=== PATIENT | female | born 1970 | race Caucasian/White ===

== ENCOUNTER 2023-09-10 15:08 | Outpatient (AMB) | payer OTHER, SELFPAY ==
--- NOTE | 2023-09-10 15:04 | MHC.OFFVIS ---
Intake Vital Signs 09/10/23 15:05 Height 5 ft 4 in Intake Visit Reasons: PANTRY STEWARD/STEWARDESS/ re-ref for VV, hx of venaseal Intake Note: PANTRY STEWARD/STEWARDESS/ Re-referral for Left LE VV s/p Right GSV Venaseal 08/10/2019. Pt states that she also has bilateral hand numbness. The past year she did have a few surgeries including hysterectomy Accompanied by: Self / Same As Patient Allergies fermaldihide Allergy (Mild, Uncoded 09/10/23 15:12) Hives HPI PANTRY STEWARD/STEWARDESS/ re-ref for VV, hx of venaseal HPI Details Very pleasant 53-year-old female presents for follow-up regarding venous disease. We had actually seen her back in May of 2019. At that time she had undergone bilateral great saphenous vein ablation with Cyanoacralate ablation. She reports that she was doing extremely well since that time. Over the last few years she reports that the swelling has progressively increased left more so than right. She has developed a large cluster varicosities going from the medial aspect of that left thigh into the posterior calf. In addition in the interim she did have a hysterectomy. She reports she has been doing fairly well otherwise but the leg swelling is starting to become an issue for her. She is not a able to do her daily exercises including walking and yoga. She now presents for follow-up evaluation. Of note she has been using compression that has provided minimal relief. [facility] Medical History (Updated 09/11/23 @ 07:39 by Иван Young MD) Hernia (~1972) Surgical History (Updated 09/10/23 @ 15:14 by SAROJ Laureano) S/P endometrial ablation H/O: hysterectomy (~03/2023) Social History (Updated 09/10/23 @ 15:15 by SAROJ Laureano) Patient Tobacco Use Status: Never used Tobacco Review of Systems Const Reports as per HPI ENT Reports no additional complaints Card Denies chest pain, Denies chest pain at rest and Denies chest pain with activity Resp Denies chest congestion and Denies cough GI Reports no additional complaints Musc Details: pain over varicosities, aching of lower extremities, swelling, cramping, heaviness and tiredness, itching Denies abnormal gait Skin/Breast Reports pruritus and Denies wounds Neuro Reports no additional complaints and Denies abnormal gait Psych Denies no additional complaints Physical Exam Const General: cooperative, healthy appearing and comfortable Orientation/consciousness: oriented to person, oriented to place and oriented to time Neck Carotids: no bruits Chest Chest palpation & inspection: normal inspection of the chest and normal palpation of entire chest wall Resp Effort & Inspection: normal respiratory effort and able to speak in complete sentences Cardio Rate: regular rate Heart sounds: S1 normal heart sound present and S2 normal heart sound present Peripheral pulses: Peripheral pulses 2+ throughout GI Inspection: Yes normal to inspection Skin Other: +2 edema, large rope-like varicosities greater than 4 mm Left medial thigh and calf CEAP Classification C4 - skin color changes Ep - Etiology Primary As - superficial veins P - reflux General skin exam: dry skin Neuro General: oriented to person, oriented to place and oriented to time Extrem Right lower extremity: full ROM, normal capillary refill and edema Left lower extremity: full ROM, normal capillary refill and edema Psych Mental Status: mental status grossly normal Assessment & Plan Assessment & Plan (1) Varicose veins of left lower extremity with inflammation: Comment: 05/2019 - left great saphenous vein Cyanoacralate ablation Code(s): I83.12 - Varicose veins of left lower extremity with inflammation Plan: In short, the patient has evidence of venous insufficiency. I have discussed the pathophysiology with the patient. In addition I have provided informational material regarding venous disease to the patient. We have discussed conservative measures including compression, elevation, and exercise. I have also provided a handout regarding appropriate use of compression stockings and where to purchase good compression stockings as well. I have taken the liberty of ordering venous insufficiency testing with the patient. They will follow up with me after testing. The patient had an opportunity to ask questions regarding the treatment plan. All questions were answered. Imaging studies, laboratory studies and physical exam results were discussed and reviewed in detail. No major barriers to understanding were identified. The patient expressed understanding and agreement with the above treatment plan. The patient is aware they should contact our office by phone for worsening of the current condition or the appearance of new symptoms. Thank you for allowing me to participate in the vascular care of this patient. If you have any questions or concerns regarding the treatment for the above condition please do not hesitate to contact me. The office telephone contact is [phone]. This note is constructed using voice recognition software. While every effort has been made to ensure accuracy, production statistical clerk errors may have been included. Thank you for allowing me to participate in the care of your patient. Yours sincerely, Иван Young MD, FACS, R.P.V.I. (2) Varicose veins of right lower extremity with inflammation: Comment: 05/2019 - right great saphenous vein Cyanoacralate ablation Code(s): I83.11 - Varicose veins of right lower extremity with inflammation Orders: Orders US venous duplex LE BI 1 Week I83.12 - Varicose veins of left lower extremity with inflammation Coding Level of Care Code New Pt Level 4 (58031) Diagnoses Varicose veins of left lower extremity with inflammation I83.12 Varicose veins of right lower extremity with inflammation I83.11
== END 2023-09-10 15:54 | disposition home or self-care (01) ==
PROVIDERS: PCP Internal Medicine; Visit Provider Surgery Vascular Surgery
DX: I83.12 Varicose veins of left lower extremity with inflammation (principal); I83.11 Varicose veins of right lower extremity with inflammation
CPT/HCPCS: 99203

== ENCOUNTER → 2023-09-10 15:08 | Outpatient (BNVA) | payer OTHER, SELFPAY | PROVIDERS: PCP Internal Medicine; Visit Provider Surgery Vascular Surgery ==

== ENCOUNTER 2023-09-19 12:45 | Outpatient (REF) | payer OTHER, SELFPAY ==
--- NOTE | ~2023-09-19 | US_ITS ---
EXAMINATION: RIGHT and LEFT LOWER EXTREMITY VENOUS ULTRASOUND (Reflux Exam) CLINICAL INDICATION: Varicose veins left lower extremity with inflammation status post venous ablation on the right of the greater saphenous vein 2019 left venoseal greater saphenous vein 2019 COMPARISON: Ultrasound venous insufficiency from 06/02/2019, ultrasound lower extremity Doppler right from 08/03/2019 TECHNIQUE: Color flow triplex imaging and compression Doppler was performed to evaluate both the deep and the superficial systems bilaterally. To evaluate the superficial system, the examination was performed in the upright position. Color-flow Doppler ultrasound and compression ultrasound were utilized. In addition, maneuvers were utilized to demonstrate reflux. FINDINGS: 1. DEEP VENOUS ULTRASOUND OF THE RIGHT LOWER EXTREMITY: Respiratory variation, normal compression and augmented flow are noted in the right common femoral vein, right femoral vein, as well as the right popliteal vein and there is no evidence of deep venous thrombosis at these locations. There is no evidence of reflux in the deep system in either the common femoral vein or the popliteal vein. . There is no evidence of a Johnson's cyst. 2. SUPERFICIAL ULTRASOUND WITH DOPPLER OF RIGHT LOWER EXTREMITY: The right great saphenous vein at the saphenofemoral junction measures 6.4 mm, at the mid thigh 3.1 mm, zbmwl-sca-yvxc 1.9 mm, ioryg-mqi-layf 2.7 mm, at mid calf 2.5 mm and at the ankle measures 2.1 mm. There is reflux demonstrated in the right great saphenous vein. The right small saphenous vein measures 2.3 mm and shows no reflux. Multiple perforators measuring up to 4.1 mm with reflux. Multiple varicose veins measuring up to 4.1 mm with reflux. 3. DEEP VENOUS ULTRASOUND OF THE LEFT LOWER EXTREMITY: Respiratory variation, normal compression and augmented flow are noted in the left common femoral vein, femoral vein as well as the left popliteal vein and there is no evidence of deep venous thrombosis at these locations. There is no evidence of reflux in the deep system in either the common femoral vein or the popliteal vein. . Duplicated left femoral vein seen in its midportion. There is no evidence of a Johnson's cyst. 4. SUPERFICIAL ULTRASOUND WITH DOPPLER OF LEFT LOWER EXTREMITY: Left great saphenous vein at the saphenofemoral junction measures 7.2 mm, at the mid thigh 1.9 mm, rpjmy-auw-nqfo 2.7 mm, mzvad-lwh-cbzm 0.9 mm, at mid calf 1.5 mm and at the ankle measures 2.2 mm. There is reflux demonstrated in the left great saphenous vein. Accessory vein noted medially measuring up to 2.8 mm without reflux and laterally measuring up to 8.0 cm with reflux. The left small saphenous vein measures 2.1 mm and shows no reflux. Multiple perforators noted measuring up to 2.8 mm without reflux. No varicose veins. US/US venous duplex LE BI IMPRESSION: 1. No evidence of reflux or thrombus in the common femoral veins or popliteal veins bilaterally. 2. RIGHT: No reflux of the deep system. Reflux of the superficial system. Multiple perforators with reflux. Multiple varicose veins with reflux. 3. LEFT: No reflux of the deep system. Reflux of the superficial system. Multiple perforators without reflux. No varicose veins.
== END 2023-09-19 12:46 | disposition home or self-care (01) ==
LOC: HO.US 12:45
PROVIDERS: PCP Internal Medicine; Visit Provider Surgery Vascular Surgery
DX: I83.12 Varicose veins of left lower extremity with inflammation (principal)
CPT/HCPCS: 93970

== ENCOUNTER 2023-10-15 13:39 | Outpatient (AMB) | payer OTHER, SELFPAY ==
--- NOTE | 2023-10-15 13:49 | MHC.OFFVIS ---
Intake Vital Signs 10/15/23 13:49 Height 5 ft 4 in Intake Visit Reasons: FU US Intake Note: follow up repeat US 09/19/23 w/ Hx of Right GSV Venaseal 08/10/2019 and Left GSV venaseal 05/2019. Pt states Left LE has been bothersome recently Accompanied by: Self / Same As Patient Allergies fermaldihide Allergy (Mild, Uncoded 10/15/23 13:53) Hives HPI FU US HPI Details Very pleasant 53-year-old female presents for follow-up regarding venous insufficiency. She had bilateral lower extremity venous ablation is with us back in 2019. She reports she had been doing well for period of time in the left leg started to cause her some issues. She had some swelling and discomfort she now presents for follow-up with repeat venous insufficiency testing. Of note she has been using compression with minimal PFSH Medical History Hernia (~1972) Surgical History S/P endometrial ablation H/O: hysterectomy (~03/2023) (Updated 09/10/23 @ 15:15 by SAROJ Laureano) Patient Tobacco Use Status: Never used Tobacco Review of Systems Const Reports as per HPI ENT Reports no additional complaints Card Denies chest pain, Denies chest pain at rest and Denies chest pain with activity Resp Denies chest congestion and Denies cough GI Reports no additional complaints Musc Details: pain over varicosities, aching of lower extremities, swelling, cramping, heaviness and tiredness, itching Denies abnormal gait Skin/Breast Reports pruritus and Denies wounds Neuro Reports no additional complaints and Denies abnormal gait Psych Denies no additional complaints Physical Exam Const General: cooperative, healthy appearing and comfortable Orientation/consciousness: oriented to person, oriented to place and oriented to time Neck Carotids: no bruits Chest Chest palpation & inspection: normal inspection of the chest and normal palpation of entire chest wall Resp Effort & Inspection: normal respiratory effort and able to speak in complete sentences Cardio Rate: regular rate Heart sounds: S1 normal heart sound present and S2 normal heart sound present Peripheral pulses: Peripheral pulses 2+ throughout GI Inspection: Yes normal to inspection Skin Other: +2 edema, large rope-like varicosities greater than 4 mm CEAP Classification C4 - skin color changes Ep - Etiology Primary As - superficial veins P - reflux General skin exam: dry skin Neuro General: oriented to person, oriented to place and oriented to time Extrem Right lower extremity: full ROM, normal capillary refill and edema Left lower extremity: full ROM, normal capillary refill and edema Psych Mental Status: mental status grossly normal Results Reviewed Results Reviewed: Brief summary of venous insufficiency testing is as follows: right great saphenous vein: Positive at calf right small saphenous vein: negative right accessory vein: none present left great saphenous vein: negative left small saphenous vein: negative left accessory vein: Present and positive Please note there is no evidence of any venous aneurysms or significant tortuosity Assessment & Plan Assessment & Plan (1) Varicose veins of left lower extremity with inflammation: Comment: 05/2019 - left great saphenous vein Cyanoacralate ablation Code(s): I83.12 - Varicose veins of left lower extremity with inflammation Plan: This patient has varicose veins with inflammation. They continue to be a source of discomfort for the patient. The patient has tried conservative treatment with compression, leg elevation and exercise program for over 3 months time. They have been compliant with all treatment. This has provided minimal relief for the patient. I do not anticipate this course of treatment will alter the underlying etiology. The patient has been scheduled for lower extremity venous treatment inclusive of --- left accessory saphenous vein radiofrequency ablation. Risks, benefits, and complications of this procedure has been discussed in detail with the patient including but not limited to bleeding, infection, and the development of a DVT. The patient has demonstrated a clear understanding and has consented. We will schedule the patient as soon as possible. Thank you for allowing us to participate in this patient's care. If there are any questions or concerns please do not hesitate to contact us. (2) Varicose veins of right lower extremity with inflammation: Comment: 05/2019 - right great saphenous vein Cyanoacralate ablation Code(s): I83.11 - Varicose veins of right lower extremity with inflammation Coding Level of Care Code Est Pt Level 4 (89993) Diagnoses Varicose veins of left lower extremity with inflammation I83.12 Varicose veins of right lower extremity with inflammation I83.11
== END 2023-10-15 14:22 | disposition home or self-care (01) ==
PROVIDERS: PCP Internal Medicine; Visit Provider Surgery Vascular Surgery
DX: I83.12 Varicose veins of left lower extremity with inflammation (principal); I83.11 Varicose veins of right lower extremity with inflammation
CPT/HCPCS: 99214

== ENCOUNTER → 2023-10-15 13:39 | Outpatient (BNVA) | payer OTHER, SELFPAY | PROVIDERS: PCP Internal Medicine; Visit Provider Surgery Vascular Surgery ==

== ENCOUNTER 2023-11-29 08:27 | Outpatient (AMB) | payer OTHER, SELFPAY ==
--- NOTE | 2023-11-29 09:38 | MHC.OFFVIS ---
Intake Vital Signs 11/29/23 09:38 Height 5 ft 4 in Intake Visit Reasons: Left ASV RFA Allergies fermaldihide Allergy (Mild, Uncoded 11/29/23 09:39) Hives [facility] Medical History Hernia (~1972) Surgical History S/P endometrial ablation H/O: hysterectomy (~03/2023) Social History Patient Tobacco Use Status: Never used Tobacco Office Procedures Vascular Office Procedure Details Details: Diagnosis: Varicose veins with inflammation of left leg Procedure: Endovenous radiofrequency ablation of the left accessory saphenous vein(s) of the lower extremity. Anesthesia: Local infiltration 5 cc, Tumescent 200 cc. Estimated Blood Loss: Minimal Specimen: Varicose veins The patient was transferred to the procedure suite and the insufficient saphenous vein was mapped by ultrasound and diagrammed on the overlying skin. The depth and diameter of the vein(s) to be treated was documented. The varicose tributary veins and suitable access sites were identified and mapped as well. The patient was then positioned supine on the procedure table. The affected limb was prepped and draped in the usual sterile fashion. The RF catheter was placed on the sterile field, flushed and wiped down, prepared, and connected by a sterile cable. The patient was placed in reverse- Trendelenburg position and local anesthesia was instilled in the skin overlying the access site. A skin incision was made overlying the identified and mapped great saphenous vein entry site. The vein was accessed using ultrasound guidance and the Seldinger technique, a guide wire was introduced through the needle, which was then exchanged over the guide wire for a 7F sheath, which was secured in place. The guide wire was removed and the sheath was flushed. The RF catheter was placed into the vein through the sheath and preferentially, imaging was used to place the catheter tip just inferior to the superficial epigastric vein to preserve normal physiological flow in that vein. Additionally, it was confirmed by ultrasound guidance that the catheter tip was also placed a minimum of 1.5cm distal to the saphenofemoral junction. After the RF catheter position was verified by ultrasound, tumescent anesthesia was infiltrated, under ultrasound guidance, precisely into the perivenous compartment along the entire length of vein from the entry site to the saphenofemoral junction until a halo of fluid was noted around the vein. The patient was then placed in Trendelenburg position to further exsanguinate the superficial venous system. After RF catheter position was again confirmed with ultrasound imaging, and under direct external compression along the length of the heating element, RF energy was applied. The vein was segmentally ablated by heating a 7 cm segment and then indexing the catheter forward by 6.5 cm until the treatment length is completed. Device temperature was maintained at 120 plus or minus 5 degrees C with an initial power level of 40W dropping to below 20W for each treatment. Total vein length treated 6 cm Total cycles of RF 4. Repeat ultrasound of the saphenous vein was performed, confirming successful treatment. The catheter and sheath were withdrawn and hemostasis established with direct pressure. After assuring hemostasis, the skin incision over the saphenous vein was closed with a bandage and a compression wrap, and/ or graduated compression stocking was applied from the level of the foot to the most proximal level of the thigh. 46503 - Endovenous RF, 1st Vein All charges added?: Procedure code (CPT) selection complete Assessment & Plan Assessment & Plan (1) Varicose veins of left lower extremity with inflammation: Comment: 05/2019 - left great saphenous vein Cyanoacralate ablation Code(s): I83.12 - Varicose veins of left lower extremity with inflammation Plan: See op note Coding Level of Care Code Procedure Only Diagnoses Varicose veins of left lower extremity with inflammation I83.12 CPT Codes Details - Vascular 1: 01509 - Endovenous RF, 1st Vein ([id number])
== END 2023-11-29 09:09 | disposition home or self-care (01) ==
PROVIDERS: PCP Internal Medicine; Visit Provider Surgery Vascular Surgery
DX: I83.12 Varicose veins of left lower extremity with inflammation (principal)
CPT/HCPCS: 36475

== ENCOUNTER → 2023-11-29 08:27 | Outpatient (BNVA) | payer OTHER, SELFPAY | PROVIDERS: PCP Internal Medicine; Visit Provider Surgery Vascular Surgery | DX: I83.12 Varicose veins of left lower extremity with inflammation (principal) | CPT/HCPCS: 36475 ==

== ENCOUNTER 2023-12-02 15:42 | Outpatient (REF) | payer OTHER, SELFPAY ==
--- NOTE | ~2023-12-02 | US_ITS ---
EXAMINATION: US VENOUS ULTRASOUND WITH DOPPLER LOWER EXTREMITY, LEFT CLINICAL INFORMATION: Pain in left leg Status post left venaseal ablation of the ASV (lateral) Date of procedure 11/29/2023 COMPARISON: None available. TECHNIQUE: Ultrasound of the deep veins is performed from the hip to the calf with compression sonography and color and pulse Doppler assessment. Spectral analysis with color-flow imaging is performed. FINDINGS: There is normal venous compression and respiratory variation. The visualized common femoral vein, superficial femoral vein, profunda femoral vein, popliteal vein, and the mid posterior tibial vein and peroneal vein shows no evidence of deep venous thrombosis. The contralateral common femoral vein demonstrates normal respiratory variation. The ASV (lateral) is occluded 1.9 cm from the junction. There is no extension into the SFJ/SPJ. US/US venous duplex LE LT IMPRESSION: No DVT demonstrated in the left lower extremity. Excellent appearance status post venaseal ablation of the left ASV.
== END 2023-12-02 15:43 | disposition home or self-care (01) ==
LOC: HO.US 15:42
PROVIDERS: PCP Internal Medicine; Visit Provider Surgery Vascular Surgery
DX: M79.605 Pain in left leg (principal)
CPT/HCPCS: 93971

== ENCOUNTER 2023-12-12 13:38 | Outpatient (AMB) | payer OTHER, SELFPAY ==
[2023-12-12 13:56] VITALS: BP 140/92; PULSE 87; O2SAT 99
--- NOTE | 2023-12-12 13:56 | A.OFFVIS_ITS ---
Intake Vital Signs 12/12/23 13:56 Height 5 ft 4 in BP 140/92 H Blood Pressure Location Lt brachial Position Sitting Pulse 87 Pulse Source Pulse Oximeter Pulse Oximetry (%) 99 Oxygen Delivery Method Room Air Intake Visit Reasons: 2 week follow up left ASV RFA Intake Note: Pt presents to the office today for a 2 week follow up left ASV RFA. Pt states she is feeling well and has been using compression stockings. Pt denies any concerns at this time. Allergies fermaldihide Allergy (Mild, Uncoded 12/12/23 13:58) Hives HPI 2 week follow up left ASV RFA HPI Details Very pleasant 53-year-old female presents for follow-up status post left accessory saphenous vein radiofrequency ablation. She reports that she had no postprocedure discomfort. Overall she does note that the left leg swelling has decreased. She does have some superficial varicosities that have been a source of pain and discomfort for her. She now presents to us for vascular evaluation. [facility] Medical History Hernia (~1972) Surgical History S/P endometrial ablation H/O: hysterectomy (~03/2023) Social History Patient Tobacco Use Status: Never used Tobacco Review of Systems Const Reports as per HPI ENT Reports no additional complaints Card Denies chest pain, Denies chest pain at rest and Denies chest pain with activity Resp Denies chest congestion and Denies cough GI Reports no additional complaints Musc Details: pain over varicosities, aching of lower extremities, swelling, cramping, heaviness and tiredness, itching Denies abnormal gait Skin/Breast Reports pruritus and Denies wounds Neuro Reports no additional complaints and Denies abnormal gait Psych Denies no additional complaints Physical Exam Vital Signs: Last Vital Signs Pulse 87 12/12/23 13:56 BP 140/92 H 12/12/23 13:56 Pulse Ox 99 12/12/23 13:56 Oxygen Delivery Method Room Air 12/12/23 13:56 Const General: cooperative, healthy appearing and comfortable Orientation/consciousness: oriented to person, oriented to place and oriented to time Neck Carotids: no bruits Chest Chest palpation & inspection: normal inspection of the chest and normal palpation of entire chest wall Resp Effort & Inspection: normal respiratory effort and able to speak in complete sentences Cardio Rate: regular rate Heart sounds: S1 normal heart sound present and S2 normal heart sound present Peripheral pulses: Peripheral pulses 2+ throughout GI Inspection: Yes normal to inspection Skin Other: +2 edema, large rope-like varicosities greater than 4 mm left thigh and medial calf CEAP Classification C4 - skin color changes Ep - Etiology Primary As - superficial veins P - reflux General skin exam: dry skin Neuro General: oriented to person, oriented to place and oriented to time Extrem Right lower extremity: full ROM, normal capillary refill and edema Left lower extremity: full ROM, normal capillary refill and edema Psych Mental Status: mental status grossly normal Assessment & Plan Assessment & Plan (1) Varicose veins of left lower extremity with inflammation: Comment: 05/2019 - left great saphenous vein Cyanoacralate ablation 11/29/2023 -left accessory saphenous vein radiofrequency ablation Code(s): I83.12 - Varicose veins of left lower extremity with inflammation Plan: This patient has varicose veins with inflammation. They continue to be a source of discomfort for the patient. The patient has tried conservative treatment with compression, leg elevation and exercise program for over 3 months time. They have been compliant with all treatment. This has provided minimal relief for the patient. I do not anticipate this course of treatment will alter the underlying etiology. The patient has been scheduled for lower extremity venous treatment inclusive of --- left leg microphlebectomy. Risks, benefits, and complications of this procedure has been discussed in detail with the patient including but not limited to bleeding, infection, and the development of a DVT. The patient has demonstrated a clear understanding and has consented. We will schedule the patient as soon as possible. Thank you for allowing us to participate in this patient's care. If there are any questions or concerns please do not hesitate to contact us. Coding Level of Care Code Est Pt Level 3 (09096) Diagnoses Varicose veins of left lower extremity with inflammation I83.12
== END 2023-12-12 14:36 | disposition home or self-care (01) ==
PROVIDERS: PCP Internal Medicine; Visit Provider Surgery Vascular Surgery
DX: I83.12 Varicose veins of left lower extremity with inflammation (principal)
CPT/HCPCS: 99213

== ENCOUNTER → 2023-12-12 13:38 | Outpatient (BNVA) | payer OTHER, SELFPAY | PROVIDERS: PCP Internal Medicine; Visit Provider Surgery Vascular Surgery ==

== ENCOUNTER 2024-01-17 10:24 | Outpatient (AMB) | payer OTHER, SELFPAY ==
--- NOTE | 2024-01-17 11:38 | MHC.OFFVIS ---
Intake Intake Visit Reasons: Left Leg Micro Allergies fermaldihide Allergy (Mild, Uncoded 12/12/23 13:58) Hives PFSH Medical History Hernia (~1972) Surgical History S/P endometrial ablation H/O: hysterectomy (~03/2023) Social History Patient Tobacco Use Status: Never used Tobacco Office Procedures Vascular Office Procedure Details Details: Diagnosis: [] Leg varicose veins with inflammation Procedure: Left leg Microphlebectomy Anesthesia: Local Infiltration 50 cc, Tumescent: 0 cc. Varicose veins were marked in the standing position on the left leg and the patient was then placed in the prone position. The left lower extremity was prepared and draped to allow knee flexion in the sterile field. The patient had large superficial varicose veins with significant symptoms of pain. It was therefore determined to perform microphlebectomies of the clusters of varicose veins. The patient had bulging varicose veins which were previously marked in the standing position. A small stab incision was made longitudinally directly overlying the varicose vein in the calf and the varicose vein was grasped with a hemostat aided by a vein hook. It was then dissected as far proximally and distally as possible and avulsed. A total of 12 stab incisions were made and the procedure of stab phlebectomies was repeated 12 times. Hemostasis was checked and stab incision sites were closed with steri-strips and sterile dressing was given with gauze and krilex wrap followed by an phuc bandage. There were no complications and blood loss was minimal. Post-Op instructions were given and a follow-up appointment was recommended. [id number] - Phleb Veins, Extrem - up to 20 All charges added?: Procedure code (CPT) selection complete Assessment & Plan Assessment & Plan (1) Varicose veins of left lower extremity with inflammation: Comment: 05/2019 - left great saphenous vein Cyanoacralate ablation 11/29/2023 -left accessory saphenous vein radiofrequency ablation 01/17/2024 - left leg microphlebectomy Code(s): I83.12 - Varicose veins of left lower extremity with inflammation Plan: See op note Coding Level of Care Code Procedure Only Diagnoses Varicose veins of left lower extremity with inflammation I83.12 CPT Codes Details - Vascular 5: 60970 - Phleb Veins, Extrem - up to 20 ([id number])
== END 2024-01-17 12:52 | disposition home or self-care (01) ==
PROVIDERS: PCP Internal Medicine; Visit Provider Surgery Vascular Surgery
DX: I83.12 Varicose veins of left lower extremity with inflammation (principal)
CPT/HCPCS: 37765

== ENCOUNTER → 2024-01-17 10:24 | Outpatient (BNVA) | payer OTHER, SELFPAY | PROVIDERS: PCP Internal Medicine; Visit Provider Surgery Vascular Surgery | DX: I83.12 Varicose veins of left lower extremity with inflammation (principal) | CPT/HCPCS: 37765 ==

== ENCOUNTER 2024-02-19 13:13 | Outpatient (REF) | payer OTHER, SELFPAY ==
[2024-02-20 07:29] LABS: Follicle Stimulating Hormone 146.5 mIU/mL; Lutenizing Hormone 63.8 mIU/mL
== END 2024-02-19 13:14 | disposition home or self-care (01) ==
LOC: HO.LAB 13:13
PROVIDERS: PCP Internal Medicine; Visit Provider Internal Medicine
DX: N91.2 Amenorrhea, unspecified (principal)
CPT/HCPCS: 36415; 83001; 83002

== ENCOUNTER 2024-03-03 15:01 | Outpatient (AMB) | payer OTHER, SELFPAY ==
--- NOTE | 2024-03-03 15:05 | MHC.OFFVIS ---
Intake Vital Signs 03/03/24 15:05 Height 5 ft 4 in Intake Visit Reasons: Follow Up Micro Intake Note: follow up Left LE Micro 01/17/24. Pt states legs feel good, she wears her compression socks daily when she is on her feet. Accompanied by: Self / Same As Patient Allergies fermaldihide Allergy (Mild, Uncoded 03/03/24 15:13) Hives HPI Follow Up Micro HPI Details Very pleasant 54-year-old female presents for follow-up status post microphlebectomy. She reports that her legs are doing significantly better swelling and discomfort have decreased. She now presents for routine follow-up. Of note she has been using compression and reports a fairly good result with that. [facility] Medical History Hernia (~1972) Surgical History S/P endometrial ablation H/O: hysterectomy (~03/2023) Social History Patient Tobacco Use Status: Never used Tobacco Review of Systems Const All systems reviewed & are unremarkable except as noted in HPI and below Reports no additional complaints ENT Reports Normal hearing present Card Denies chest pain, Denies chest pain at rest, Denies chest pain with activity and Denies pedal edema Resp Denies cough GI Denies abdominal pain Musc Denies abnormal gait, Denies muscle cramps and Denies radiating pain into limb Skin/Breast Denies skin ulcer and Denies wounds Neuro Reports Normal hearing present and Denies abnormal gait Psych Reports no additional complaints Physical Exam Const General: cooperative, healthy appearing and comfortable Orientation/consciousness: oriented to person, oriented to place and oriented to time HEENT Head: Yes normal to inspection Neck Neck: Yes normal visual inspection Carotids: no bruits Chest Chest palpation & inspection: normal inspection of the chest Resp Effort & Inspection: normal respiratory effort and able to speak in complete sentences Auscultation: clear to auscultation bilaterally, no crackles, no rales, no rhonchi and no wheezes Cardio Rate: regular rate Rhythm: regular rhythm Heart sounds: S1 normal heart sound present and S2 normal heart sound present Bruits: no carotid bruits Peripheral pulses: Peripheral pulses 2+ throughout GI Inspection: Yes normal to inspection Skin Wounds: no wounds Hair: normal Neuro General: oriented to person, oriented to place and oriented to time Cranial nerves: Yes CN's II-XII intact bilaterally and Yes Normal hearing present Cognition (Neuro): normal cognition Motor exam (neuro): 5/5 motor strength present throughout Extrem Other: venous exam: No significant superficial varicosities or spider telangiectasias, minimal edema General: No clubbing, No cyanosis and No edema Psych Appearance: grossly normal Mental Status: mental status grossly normal Speech and movement: Normal speech and movement present Assessment & Plan Assessment & Plan (1) Varicose veins of left lower extremity with inflammation: Comment: 05/2019 - left great saphenous vein Cyanoacralate ablation 11/29/2023 -left accessory saphenous vein radiofrequency ablation 01/17/2024 - left leg microphlebectomy Code(s): I83.12 - Varicose veins of left lower extremity with inflammation Plan: The patient has done extremely well with all venous treatments. Patient's may often experience postprocedure phlebitic episodes and I have discussed with the patient use of warm compresses and NSAIDS if tolerated for pain discomfort. In addition, I have discussed continued conservative measures including use of compression, leg elevation, and exercise. The patient was also given an information sheet regarding appropriate use of compression stockings and future purchases. Thank you for allowing us to care for your patient with venous disease. (2) Varicose veins of right lower extremity with inflammation: Comment: 05/2019 - right great saphenous vein Cyanoacralate ablation Code(s): I83.11 - Varicose veins of right lower extremity with inflammation Plan: See above Coding Level of Care Code Est Pt Level 3 (12056) Diagnoses Varicose veins of left lower extremity with inflammation I83.12 Varicose veins of right lower extremity with inflammation I83.11
== END 2024-03-03 15:41 | disposition home or self-care (01) ==
PROVIDERS: PCP Internal Medicine; Visit Provider Surgery Vascular Surgery
DX: I83.12 Varicose veins of left lower extremity with inflammation (principal); I83.11 Varicose veins of right lower extremity with inflammation
CPT/HCPCS: 99213

== ENCOUNTER → 2024-03-03 15:01 | Outpatient (BNVA) | payer OTHER, SELFPAY | PROVIDERS: PCP Internal Medicine; Visit Provider Surgery Vascular Surgery ==

== ENCOUNTER 2024-04-21 14:30 | Outpatient (REF) | payer OTHER, SELFPAY ==
[2024-04-21 19:05] LABS: Vitamin B12 1369 pg/mL (200-900)
== END 2024-04-21 14:31 | disposition home or self-care (01) ==
LOC: HO.MANLDS 14:30
PROVIDERS: Visit Provider Internal Medicine
DX: G56.03 Carpal tunnel syndrome, bilateral upper limbs (principal)
CPT/HCPCS: 36415; 82607

== ENCOUNTER 2025-03-08 13:41 | Outpatient (REF) | payer OTHER, SELFPAY ==
--- NOTE | ~2025-03-08 | XR_ITS ---
EXAMINATION: Lumbar spine 6 views. CLINICAL INDICATION: Low back pain. COMPARISON: None. FINDINGS: There is normal lumbar lordosis. There is mild dextroscoliosis upper lumbar spine. 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 The vertebral heights and alignment is normal. There is mild loss of L5-S1 disc height. Rest of the disc heights are normal. On oblique views there is no pars defect or listhesis. No lytic or sclerotic process seen. The SI joints are symmetrical and normal. The paravertebral soft tissues are normal. XR/XR lumbar spine 4V min IMPRESSION: Mild loss of L5-S1 disc height. Electronically signed by: Nayan Johansen MD 03/09/2025 07:57 AM EDT
--- OUTSIDE RECORDS SUMMARY | 2025-03-08 15:51 | XMS_ITS | Encounter Summary ---
Author Organization [facility] Address [address] [place] [id number] Phone Care Team Providers Care Kindergarten Aide Name Role Phone Mio Pascual DO Primary Care Provider [phone] Mio Pascual DO Unavailable Encounter Details Date Type Department Care Team (Latest Contact Info) Description 12/23/2019 Transcribe Orders Virtual Department [address] [place] [address] Miriam Gauthier PA-C [address] [place] [address] Atypical chest pain (Primary Dx) Social History Tobacco Use Types Packs/Day Years Used Date Smoking Tobacco: Never Assessed Sex and Gender Information Value Date Recorded Sex Assigned at Not on file Gender Identity Not on file Sexual Orientation Not on file documented as of this encounter Plan of Treatment Not on file documented as of this encounter Visit Diagnoses Diagnosis Atypical chest pain- Primary Other chest pain documented in this encounter Care Teams Kindergarten Aide Relationship Specialty Start Date End Date Mio Pascual DO PCP - General Internal Medicine 12/16/19 Mio Pascual DO [address] [place] [address] [place] [address] Insurance Assigned Provider 01/29/20 08/31/23 documented as of this encounter Additional Source Comments The information contained in this document represents components of the legal health record. It is not the complete legal health record.[facility]
--- OUTSIDE RECORDS SUMMARY | 2025-03-08 15:51 | XMS_ITS | Continuity of Care Document ---
Author Organization [facility], [facility] Address [address] [place] [address] Assessment Encounter Date Assessment Date Assessment LastModified by Organization Details LastModified Time 03/08/2025 03/08/2025 [address] [place] [address] (REFUELER) MDM MODERATE MUST MEET 2 OUT OF 3 ELEMENTS: PROBLEMS, DATA OR RISK ELEMENT 1: PROBLEMS ADDRESSED 1 OR MORE CHRONIC ILLNESS WITH EXACERBATION OR 2 OR MORE STABLE CHRONIC ILLNESSES OR 1 UNDIAGNOSED NEW PROBLEM OR 1 ACUTE ILLNESS W/SYMPTOMS OR 1 ACUTE COMPLICATED INJURY ELEMENT 2: DATA MUST MEET 1 OF 3 CATEGORIES CATEGORY 1: REVIEW OF PRIOR EXTERNAL NOTES, REVIEW OF RESULTS, ORDERING OF EACH TEST, ASSESSMENT REQUIRING INDEPENDENT HISTORIAN OR CATEGORY 2: INDEPENDENT INTERPRETATION OF TESTS BY ANOTHER PHYSICIAN OR SPECIALIST OR CATEGORY 3: DISCUSSION OF MGT OR TEST INTERPRETATION W/EXTERNAL PHYSICIAN OR SPECIALIST ELEMENT 3: RISK RISK OF COMPLICATIONS AND/OR MORBIDITY OR MORTALITY OF PATIENT MANAGEMENT PROVIDER MUST THOROUGHLY DOCUMENT EACH ELEMENT THAT IS COVERED Not available 03/08/2025 11:15:06 Plan of Treatment Reminders Order Date Submit Date Provider Last Modified By Organization Details Last Modified Time Details Appointments FOLLOW UP 15 2024 11:00A M DR BRIDGES Not available Not available Not available Lab CMP, serum or plasma 2024 025 [facility], [address] [place] [address], [place], [address], 03/08/2025 11:24:52 CBC 2024 025 [facility], [address] [place] [address], [id number], 03/08/2025 11:24:52 lipid panel, blood 2024 025 [facility], [address] [place] [address], [id number], 03/08/2025 11:24:52 Referral None recorded. Procedures None recorded. Surgeries None recorded. Imaging XR, lumbosacr al spine, 2 or 3 view 2024 025 [email or web address] [facility] [address] [place] [address], [place], [address], 03/08/2025 11:57:00 Medication Orders None recorded. Patient TargetsNo targets recorded. Patient Instructions Encounter Date Encounter Id Patient Instructions Last Modified By Organization Details Last Modified Time 03/08/2025 [id number] back care and preventing injuries: care instructions Not available 03/08/2025 11:14:50 getting back to normal after low back pain: care instructions Not available 03/08/2025 11:14:50 learning about relief for back pain Not available 03/08/2025 11:14:49 Reason for Referral None Reported. Problems Name Problem SNOMED Code Status Onset Date Resolution Date Notes Provider Name and Address Organization Details Recorded Time Maya bhatti 09162272 Active 2021 Not Available [facility] 3 12:51:59 Menorrha arslan [id number] Completed 202205/15/2023 Removal Reason: surgery Mio Bridges DO [address] [place] [address], [phone], [facility] 3 14:41:25 Uterine leiomyom a 44768554 Completed 202205/15/2023 Removal Reason: surgery Mio Bridges DO [address] [place], [address], [facility] 3 14:49:46 Mass of uterus [id number] 29278 Completed 202205/15/2023 Mio Bridges DO [address] [place], [address], [facility] 3 14:41:30 Volvulus of colon 0592649 Active 2022 Not Available [facility] 3 12:51:59 Uterine leiomyom a 45558031 Active 2022 Not Available [facility] 3 12:51:59 Irregula r blood group antibody detected 600000271 Active 2022 Not Available [facility] 3 12:51:58 Paresthe emani of upper limb 01669904 Active 2023 Mio Bridges, DO [address] [place] [address], [address], [facility] 4 09:26:06 Carpal tunnel syndrome 48998954 Active 2023 Mio Bridges, DO [address] [place] [address], [address], [facility] 4 09:26:52 Amenorrh ea 68911101 Active 2023 Mio Bridges, DO [address] [place] [address], [address], [facility] 4 11:50:47 Menopaus e Active 2023 Mio Bridges, DO [address] [place] [address], [address], [facility] 4 12:14:25 Menopaus e present 169242810 Active 2023 Mio Bridges, DO [address] [place] [address], [address], [facility] 4 22:40:55 Low back pain 223521130 Active 2024 Mio Bridges DO [address] [place] [address], [address], [facility] 5 11:12:57 Varicose veins of lower extremit y 17243325 Active 2017 Not Available [facility] 3 12:51:59 Problem Notes None recorded. Procedures Surgical History Date Name Laterality Status Provider Name and Address Organization Details Recorded Time 4 Colonoscopy completed Carolee Rosado [facility] 09/21/2024 11:33:46 Imaging Results None recorded. Procedure Notes None recorded. Medical Equipment None Reported. Allergies Allergen ID Allergen Name Allergen Category Reaction Reaction Severity Criticality Documentation Date Start Date Code Code System Note Provider Name and Address Organization Details Recorded Time [facility] Not available Not available Not available 11/05/2022 4530 RxNorm hair will break off/s adriana yeboah, swell ing [facility] 2 13:51:51 Medications Name Sig Start Date Stop Date Status Note LastModified by Organization Details LastModified Time methylpre dnisolone dose pack 4 mg tbpk 12/23 completed Not Available Not Available Not Available aranelle 0.5/1/0.5 -35 mg-mcg tabs 12/23 completed Not Available Not Available Not Available gavilyte- g 236 gm solr 12/23 completed Not Available Not Available Not Available boostrix 5-2.5-18. 5 lf-mcg/0. 5 susp 12/23 completed Not Available Not Available Not Available senthil 0.5/1/0.5 -35 mg-mcg tabs 12/23 completed Not Available Not Available Not Available neomycin/ polymyxin /dexameth asone 3.5-67159 -0.1 susp 12/23 completed Not Available Not Available Not Available methylpre dnisolone 4 mg tabs 12/23 completed Not Available Not Available Not Available losartan 50 mg tablet 1 po qd active Not Available Not Available Not Available prednison e 10 mg tablet 1 tab X 3 days 03/17 completed Not Available Not Available Not Available ibuprofen 800 mg tablet TAKE 1 TABLET BY MOUTH EVERY 8 HOURS NEEDED FOR PAIN FOR UP TO 10 DAYS. 05/15 completed Not Available Not Available Not Available valacyclo vir 1 gram tablet TAKE 1 TABLET BY MOUTH THREE TIMES A DAY FOR 7 DAYS 02/18 completed Not Available Not Available Not Available methylpre dnisolone 4 mg tablet TAKE 6 TABLETS ON DAY 1 DIRECTED ON PACKAGE AND DECREASE BY 1 TAB EACH DAY FOR A TOTAL OF 6 DAYS 02/18 completed Not Available Not Available Not Available estradiol 0.05 mg/24 hr semiweekl y transderm al patch APPLY 1 PATCH BY TRANSDER MAL ROUTE TWICE A WEEK active Not Available Not Available No t Available Vitamin C 1,000 mg tablet Take by oral route. 05/15 completed Not Available Not Available Not Available neomycin- polymyxin -dexameth 3.5 mg/mL-10, 000 unit/mL-0 .1% eye drops 12/23 completed Not Available Not Available Not Available lisinopri l 10 mg tablet TAKE 1 TABLET BY MOUTH EVERY DAY 12/24 completed nose bleeds Not Available Not Available Not Available triamtere ne 37.5 mg-hydroc hlorothia zide 25 mg tablet TAKE 1 TABLET BY MOUTH EVERY DAY FOR 30 DAYS 04/21 completed near incontin ent the hctz bothers her Not Available Not Available Not Available codeine 10 mg-guaife nesin 100 mg/5 mL oral liquid 02/28 completed Not Available Not Available Not Available norethind alfreda acetate 5 mg tablet TAKE TWO TABLETS PER DAY ORALLY UNTIL BLEEDING STOPS AND THEN ONE ORALLY PER DAY 11/05 completed Not Available Not Available Not Available ibuprofen 600 mg tablet TAKE 1 TABLET BY MOUTH EVERY 6 HOURS 05/15 completed Not Available Not Available Not Available methylpre dnisolone 4 mg tablets in a dose pack 24 mg PO on day 1, then decr. by 4 mg/day x5 days per dose pack instruct ions 12/23 completed Not Available Not Available Not Available labetalol 100 mg tablet TAKE 1 TABLET BY MOUTH EVERY 8 HOURS 11/05 completed Not Available Not Available Not Available oxycodone 5 mg tablet TAKE 1 TABLET BY MOUTH EVERY 6 HOURS NEEDED FOR PAIN 05/15 completed Not Available Not Available Not Available Vitamin D3 25 mcg (1,000 unit) capsule Take by oral route. 05/15 completed Not Available Not Available Not Available Multivita min 50 Plus tablet Take 1 tablet every day by oral route. active Not Available Not Available No t Available Aradavide (28) 0.5 mg/1 mg/0.5 mg-35 mcg tablet 1 tablet qd 05/15 completed Not Available Not Available Not Available Boostrix Tdap 2.5 Lf unit-8 mcg-5 Lf/0.5 mL intramusc ular syringe 12/23 completed Not Available Not Available Not Available magnesium active Not Available Not Rosa ilable Not Available Vitamin D3 OTC 04/21 completed Not Available Not Available Not Available Vitamin B12 OTC tablets active Not Available Not Available No t Available GaviLyte- G 236 gram-22.7 4 gram-6.74 gram-5.86 gram oral solution 06/17 completed Not Available Not Available Not Available ClearLax 17 gram/dose oral powder MIX 17 GRAMS WITH WATER AND DRINK ONCE DAILY NEEDED FOR CONSTIPA TION 05/15 completed Not Available Not Available Not Available Vitamin B12 daily 05/15 completed OTC Not Available Not Available Not Available Yuvafem 10 mcg vaginal tablet INSERT 1 TABLET VAGINALL Y DAILY AT BEDTIME FOR 14 DAYS. DISCARD REMAINDI NG TABLETS. 02/18 completed Not Available Not Available Not Available Vitals None Recorded Social History Question Answer Notes LastModified by Organizat ion Details LastModified Time Tobacco Smoking Status Never Smoker Not Available [facility] 09/27/2020 03:36:23 What Was The Date Of Your Most Recent Tobacco Screening? 08/07/2024 [email or web address] Information not available 08/07/2024 How Much Tobacco Do You Smoke? No [id number] Information not available 09/27/2020 Do You Or Have You Ever Used Any Other Forms Of Tobacco Or Nicotine? No [email or web address] Information not available 12/24/2023 Sex: Female Functional Status None recorded. Mental Status None recorded. Family History Relationship Description Onset Age of this Age Resolved Age Notes LastModified by Organization Details LastModified Time Father Myocardial infarction [email or web address] Not available 11/26 11:59:58 Paternal Grandfather Myocardial infarction [email or web address] Not available 11/26 11:59:58 Paternal Uncle Myocardial infarction [email or web address] Not available 11/26 11:59:58 Paternal Grandmother Myocardial infarction [email or web address] Not available 11/26 11:59:58 Maternal Uncle Myocardial infarction [email or web address] Not available 11/26 11:59:58 Mother Polyp of colon [email or web address] Not available 2024 08:13:27 Sister Polyp of colon [email or web address] Not available 2024 08:13:27 Medical History No medical history recorded. Gynecological History Statement/Question Response Date of LMP 02/19/2018 Obstetrics History GPAL:G 0 P 0 0 0 0 Immunizations Vaccine Type Date Status Note Provider Nam e and Address Organization Details Recorded Time COVID-19, mRNA, LNP-S, PF, 30 mcg/0.3 mL dose 03/15/2021 completed Gloria Gencarelle eli [facility] 12/24/2023 08:55:23 COVID-19, mRNA, LNP-S, PF, 30 mcg/0.3 mL dose 04/05/2021 completed Gloria Gencarelle eli [facility] 12/24/2023 08:55:23 COVID-19, mRNA, LNP-S, PF, 30 mcg/0.3 mL dose 11/22/2021 completed Gloria Gencarelle eli [facility] 12/24/2023 08:55:23 Tdap 04/02/2019 completed Not Available [facility] 11/08/2023 12:51:59 Past Encounters Encounter ID Performer Location Encounter Start Date Encounter Closed Date Diagnosis/Indication Diagnosis SNOMED-CT Code Diagnosis ICD10 Code Diagnosis Note [id number] Mio Bridges [facility] [address] [place] [address] 03/08/2025 08:13:11 03/08/2025 11:57:00 Essential hypertension 80089068 I10 losartan is doing greathome readings are doing good Menopause 065322512 N95. 1 doing great with hormonal therapy Depression screening 171 259517 Z13.31 negative Low back pain 907109063 M54.50 seems to be worsening without a injury Health Concerns Section Related Observation LastModified by Organization Detai ls LastModified Time None Recorded Concern Status LastModified by Organization Details LastModified Time None Recorded Payers Encounter Date Sequence Insurance Name Policy Number Policy Scherer Covered Member ID Scherer Member ID Guarantor Name 03/08/2025 1 [facility] [employer] - DIRECT CONNECTORCARE TYPE I (O) [id number] Corin Swann [id number] Corin Swann Notes Date Note Type Note Provider Name and Address Organization Details Recorded Time 03/08/20 25 text/htm l Care Management - HypertensionReported bypatient.Self Care:not under emotional stress Severity:symptoms are improving; does not interfere with daily activities Associated Symptoms:no dizziness; no lightheadedness; no chest pain; no shortness of breath; no palpitations; no edema; no calf muscle cramps; no blurred vision; no confusion; no headaches; no fatigueMenopauseReported bypatient.Associated Symptoms:no abdominal pain; no pelvic pain; no abnormal bleeding; no vaginal discharge; no dysuria; no dispareunia; no changes in bowel function; no fever; no vaginal dryness; no irritability; no depression; no anxiety; no skin changes; no loss of libido; no changes in urination patient is evaluated via tele/video assessment per patient consent during current pandemic doing well sleeps well jopint pain is much betterdoing good with hormone replacementsleep is goodhas had occ back pain that has been getting worseseems to be getting worse on right sleeps at night gets worsestanding prolonged times Mio Bridges, DO [address], [place], [address], [facility] 03/08/2025 11:21:24 OBGyn Episode No OBEpisode recorded.
--- OUTSIDE RECORDS SUMMARY | 2025-03-08 15:51 | XMS_ITS | Data Portability ---
Author Organization [facility] Home Service Address [address] [place] [address] Assessment Encounter Date Assessment Date Assessment LastModified by Organization Details LastModified Time 02/19/2024 02/19/2024 [id number] [place] [id number] (CONCESSIONIST) MDM MODERATE MUST MEET 2 OUT OF [...] EACH ELEMENT THAT IS COVERED Not available 02/19/2024 11:41:19 04/21/2024 04/21/2024 [address] [place] [address] (CONCESSIONIST) MDM MODERATE MUST MEET 2 OUT OF [...] EACH ELEMENT THAT IS COVERED Not available 04/21/2024 14:13:25 08/07/2024 08/07/2024 [id number] [place] [address] (CONCESSIONIST) MDM MODERATE MUST MEET 2 OUT OF [...] EACH ELEMENT THAT IS COVERED Not available 08/07/2024 12:12:54 03/08/2025 03/08/2025 [address] [place] [address] (CONCESSIONIST) MDM MODERATE MUST MEET 2 OUT OF [...] Lab CMP, serum or plasma 2024 025 [facility], [address] [place] [address], [place], [address], 03/08/2025 11:24:52 CBC 2024 025 [facility], [address] [place] [address], [place], [address], 03/08/2025 11:24:52 lipid panel, blood 2024 025 [facility], [address] [place] [address], [address], 03/08/2025 11:24:52 vitamin B12, serum 2023 024 [facility], [address] [place] [address], [address], 04/22/2024 11:17:07 lh + FSH, serum 2023 024 [facility], [address] [place] [address], [address], 02/20/2024 11:15:04 noninvasi ve colorecta l cancer DNA + occult blood screening , QL, stool 2023 024 [facility], [address] [place] [address], [place], [address], 03/17/2024 22:09:10 CMP, serum or plasma 2023 024 [facility] (Lab), [address] [place] [address], [address], 12/26/2023 12:21:35 CBC w/ auto diff 2023 024 [facility] (Lab), [address] [place] [address], [address], 12/26/2023 12:21:34 lipid panel, blood 2023 024 [facility] (Lab), [address] [place] [address], [address], 12/26/2023 12:21:35 vitamin D, 25-hydrox y, total, serum 2023 024 [facility] (Lab), [address], [place], [address], 12/26/2023 12:21:[address] referral 2023 024 idris Soto MD, [address] [place], [address], 12/25/2023 08:32:33 Procedures None recorded. Surgeries None recorded. Imaging XR, lumbosacr al spine, 2 or 3 view 2024 025 [email or web address] [facility] (Imaging), [address] [place], [address], 03/08/2025 11:57:00 Medication Orders estradiol 0.05 mg/24 hr semiweekl y transderm al patch 2023 024 [facility]acy #[id number], [address] [place], [address], 08/07/2024 12:16:22 losartan 50 mg tablet 2023 024 [facility]armacy #[id number], [address] [place], [address], 02/19/2024 11:41:09 triamtere ne 37.5 mg-hydroc hlorothia zide 25 mg tablet 2023 024 [email or web address] [facility]/Pharmacy #[id number], [address] [place], [address], 04/21/2024 13:55:36 Patient TargetsNo targets recorded. Patient Instructions Encounter Date Encounter Id Patient Instructions Last Modified By Organization Details Last Modified Time 12/24/2023 [id number] varicose veins: care instructions Not available 12/24/2023 09:22:04 carpal tunnel syndrome: care instructions Not available 12/24/2023 09:29:13 carpal tunnel syndrome: exercises Not available 12/24/2023 09:29:13 02/19/2024 [id number] secondary amenorrhea: care instructions Not available 02/19/2024 11:50:59 04/21/2024 [id number] carpal tunnel syndrome: care instructions Not available 04/21/2024 14:14:55 carpal tunnel syndrome: exercises Not available 04/21/2024 14:14:55 secondary amenorrhea: care instructions Not available 04/21/2024 14:14:54 08/07/2024 [id number] secondary amenorrhea: care instructions Not available 08/07/2024 12:16:20 03/08/2025 [id number] back care and preventing injuries: care instructions Not available 03/08/2025 11:14:50 getting back to normal after low back pain: care instructions Not available 03/08/2025 11:14:50 learning about relief for back pain Not available 03/08/2025 11:14:49 Reason for Referral Neurologist Referral for Car pal tunnel syndrome Referring Physician: Mio Bridges, Internal Medicine, Encounter Date: 12/24/2023 Results Created Date Observation Date Name Description Value Unit Range Abnormal Flag Note LastModifiedBy Organization Detail LastModifiedTime 12/02/1912/02/2023 US, [facility] No observ ation record ed. jbigda [facility] (Medical Records) [address] [place], [address], 12/03/2023 08:28:19 01/11/20 24 01/09/2024 MAMMO , scree blanquita, digit al, bilat eral No observ ation record ed. [facility] (Main) [address], [place], [address], 01/11/2024 16:28:20 01/29/2001/13/2025 MAMMO , scree blanquita, digit al, bilat eral No observ ation record ed. [facility] [address], [place], [address], 01/28/2025 14:25:12 Result Notes None recorded. Problems Name Problem SNOMED Code Status Onset Date Resolution Date Notes Provider Name and Address Organization Details Recorded Time Maya bhatti 80701698 Active 2021 Not Available [facility] 3 12:51:59 Menorrha arslan 873095641 Completed 202205/15/2023 Removal Reason: surgery Mio Bridges, DO [address] [place] [address], [phone], [facility] 3 14:41:25 Uterine leiomyom a 16223115 Completed 202205/15/2023 Removal Reason: surgery Mio Bridges DO [address] [place] [address], [address], [facility] 3 14:49:46 Mass of uterus 7776999093 85105 Completed 202205/15/2023 Mio Bridges DO [address] [place] [address], [address], [facility] 3 14:41:30 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 Not Available [facility] 3 12:51:59 Uterine leiomyom a 93451467 Active 2022 Not Available [facility] 3 12:51:59 Irregula r blood group antibody detected 530202924 Active 2022 Not Available [facility] 3 12:51:58 Paresthe emani of upper limb 23287160 Active 2023 Mio Bridges DO [address] [place] [address], [address], [facility] 4 09:26:06 Carpal tunnel syndrome 22716842 Active 2023 Mio Bridges DO [address] [place] [address], [address], [facility] 4 09:26:52 Amenorrh ea 23158697 Active 2023 Mio Bridges, DO [address] [place], [address], [facility] 4 11:50:47 Menopaus e Active 2023 Mio Bridges, DO [address] [place], [address], [facility] 4 12:14:25 Menopaus e present 625322261 Active 2023 Mio Bridges, DO [address] [place], [address], [facility] 4 22:40:55 Low back pain 698435204 Active 2024 Mio Bridges, DO [address] [place] [address], [address], [facility] 5 11:12:57 Varicose veins of lower extremit y 78723829 Active 2017 Not Available [facility] 3 12:51:59 Problem Notes None recorded. Procedures Surgical History Date Name Laterality Status Provider Name and Address Organization Details Recorded Time 4 Colonoscopy completed Carolee Rosado [facility] 09/21/2024 11:33:46 Imaging Results Imaging Date Name Status LastModified by Organiz ation Details LastModified Time 12/02/2023 US, [facility] ([facility]) [address] [place], [address], 12/03/2023 08:28:19 01/09/2024 MAMMO, screening, digital, bilateral completed [facility] (Main) [address], [place], [address], 01/11/2024 16:28:20 01/13/2025 MAMMO, screening, digital, bilateral completed [facility] [address] [place], [address], 01/28/2025 14:25:12 Procedure Notes None recorded. Medical Equipment None Reported. Allergies Allergen ID Allergen Name Allergen Category Reaction Reaction Severity Criticality Documentation Date Start Date Code Code System Note Provider Name and Address Organization Details Recorded Time 6227 [facility],medica tion Not available Not available Not available 11/05/2022 4530 RxNorm hair will break off/s evere sun burn, swell ing Sofie benitez [facility] 2 13:51:51 Medications Name Sig Start Date Stop Date Status Note LastModified by Organization Details LastModified Time gavilyte- g 236 gm solr 12/23 completed Not Available Not Available Not Available methylpre dnisolone dose pack 4 mg tbpk 12/23 completed Not Available Not Available Not Available aranelle 0.5/1/0.5 -35 mg-mcg tabs 12/23 completed Not Available Not Available Not Available boostrix 5-2.5-18. 5 lf-mcg/0. 5 susp 12/23 completed Not Available Not Available Not Available senthil 0.5/1/0.5 -35 mg-mcg tabs 12/23 completed Not Available Not Available Not Available neomycin/ polymyxin /dexameth asone 3.5-44996 -0.1 susp 12/23 completed Not Available Not [...] Not Available Not Available No t Available Aranelle (28) 0.5 mg/1 mg/0.5 mg-35 mcg tablet [...] Not Available Not Available Not Available Vitals Date Recorded Body height Body mass index (BMI) Body weight Heart rate Oxygen saturation Oxygen saturation in Arterial blood by Pulse oximetry Systolic blood pressure Diastolic blood pressure Provider Name and Address Organization Details Last Updated DateTime 4 163.2 cm 24.4 kg/m2 37595.4 3 g 107 /min 100 % 100 % 152 mm[Hg] 102 mm[Hg] Mio Bridges, DO [address] [place], [address], [facility] 4 08:59:59 Date Recorded Body height Body mass index (BMI) Body weight Heart rate Oxygen saturation Oxygen saturation in Arterial blood by Pulse oximetry Systolic blood pressure Diastolic blood pressure Provider Name and Address Organization Details Last Updated DateTime 4 163.2 cm 24.2 kg/m2 80504.1 9 g 93 /min 99 % 99 % 122 mm[Hg] 80 mm[Hg] Carolee Rosado [facility] 4 11:19:20 Date Recorded Body height Body mass index (BMI) Body weight Heart rate Respiratory rate Oxygen saturation Oxygen saturation in Arterial blood by Pulse oximetry Systolic blood pressure Diastolic blood pressure Provider Name and Address Organization Details Last Updated DateTime 4 163.83 cm 24.5 kg/m2 21402.5 3 g 78 /min 16 /min 98 % 98 % 140 mm[Hg] 80 mm[Hg] Alphonse Hendrix [facility] 4 13:54:54 Date Recorded Body height Body mass index (BMI) Body weight Heart rate Oxygen saturation Oxygen saturation in Arterial blood by Pulse oximetry Systolic blood pressure Diastolic blood pressure Provider Name and Address Organization Details Last Updated DateTime 4 163.83 cm 24.3 kg/m2 55391.3 g 80 /min 98 % 98 % 130 mm[Hg] 80 mm[Hg] Oanh [facility] 4 11:38:46 Social History Question Answer Notes LastModified by Organizat ion Details LastModified Time Tobacco Smoking Status Never Smoker Not Available [facility] 09/27/2020 03:36:23 What Was The Date Of Your Most Recent Tobacco Screening? 08/07/2024 [email or web address] Information not available 08/07/2024 How Much Tobacco Do You Smoke? No [id number] Information not available 09/27/2020 Do You Or Have You Ever Used Any Other Forms Of Tobacco Or Nicotine? No [email or web address] Information not available 12/24/2023 Sex: Female Functional [...] available 11/26 11:59:58 Mother Polyp of colon [email or web address] Not available 2024 08:13:27 Sister Polyp of colon [email or web address] Not available 2024 08:13:27 Medical History No medical history recorded. Gynecological History Statement/Question Response Date of LMP 02/19/2018 Obstetrics History GPAL:G 0 P 0 0 0 0 Immunizations Vaccine Type Date Status Note Provider Nam e and Address Organization Details Recorded Time COVID-19, mRNA, LNP-S, PF, 30 mcg/0.3 mL dose 03/15/2021 completed [facility] 12/24/2023 08:55:23 COVID-19, mRNA, LNP-S, PF, 30 mcg/0.3 mL dose 04/05/2021 completed Gloria Gencarelle eli [facility] 12/24/2023 08:55:23 COVID-19, mRNA, LNP-S, PF, 30 mcg/0.3 mL dose 11/22/2021 completed Gloria Gencarelle eli [facility] 12/24/2023 08:55:23 Tdap 04/02/2019 completed Not Available [facility] 11/08/2023 12:51:59 Past Encounters Encounter ID Performer Location Encounter Start Date Encounter Closed Date Diagnosis/Indication Diagnosis SNOMED-CT Code Diagnosis ICD10 Code Diagnosis Note [id number] Mio Bridges [facility] [address] [facility],[place] [address] 02/28/2018 13:46:48 02/28/2018 14:49:51 Adult health examination 007352889 Z00.00 Active or passive immunization 148969566 Z23 Varicose v eins of lower extremity 91997307 I83.893 [id number] Mio Bridges [facility] [address] [facility],[place] [address] 04/16/2018 14:29:26 04/16/2018 16:21:07 Tick bite 53787688 S20.96XA will chk for lyme Varicose v eins of lower extremity 39066023 I83.893 will refer to another dr and have her seen by vascular from another practice [id number] Catherine Alvarez NP, [facility] [address] [facility],[place] [address] 10/14/2018 10:24:13 10/14/2018 16:45:32 On examination - rash present 992352240 R21 [id number] Catherine Alvarez NP, [facility] [address] [facility],[place] [address] 03/17/2019 11:33:52 03/17/2019 14:26:03 Adult health examination 599139544 Z00.01 Active or passive immunization 648615156 Z23 Screening procedure 2012 5006 Z13.9 Spots on skin 142666479 L98.8 Varicose v eins of lower extremity with inflammation 96887909 I83.10 [id number] [facility] [address] [facility], [place] [address] 06/17/2019 10:36:18 06/17/2019 11:25:55 Allergic reaction 987272135 T78.40XA avoid topicals on face continue benadryl as needed [id number] [facility] [address] [facility], [place] [address] 12/23/2019 11:14:47 12/23/2019 12:23:15 Abdominal pain 71496215 R10.9 Atypical chest pain 1025 29944 R07.89 very strong cardiac family hx go to ER if pain Diarrhea 33331823 R19.7 [id number] Mio Bridges [facility] [address] [place] [address], ite [place] [address] 11/05/2022 13:44:01 11/05/2022 14:34:04 Essential hypertension 05458889 I10 lisinopril once d rechk in 1 mo [id number] Mio Bridges [facility] [address] [place] [address], [place] [address] 11/27/2022 10:52:18 11/27/2022 13:42:23 Active or passive immunization 727442444 Z23 utd Adult heal th examination 631235361 Z00.00 long discussion re her pelvic issuesalso her bp is much improved with the new lisinopril med and she feels ok with this Essential hypertension 68312789 I10 lisinopril once and will cont Menorrhagia 484441556 N9 2.0 she will have her get some iron studies [id number] Mio Bridges [facility] [address] [place] [address], [facility] [facility] [place] [address] 12/26/2022 11:12:41 12/28/2022 11:26:48 Menorrhagia 831978685 N92.0 she will have her get some iron studies Uterine leiomyoma 624629 05 D25.9 she needs to call inventory technician now as discussed [id number] Mio Bridges [facility] [address] [facility] [address], [place] [address] 02/18/2023 14:36:33 02/18/2023 15:50:55 Mass of uterus 0265914748 23232 N85.8 with ongoing signif bleedinggy n is now not sure if this is the culprit for her pain as they feel its fibroids Volvulus of colon 062348 3 K56.2 she will need to have this eval Essential hypertension 17895960 I10 lisinopril once and will conthome readings [place] [id number] Mio Bridges [facility] [address] [facility] [address],[place] [address] 05/15/2023 14:21:36 05/15/2023 15:06:55 Essential hypertension 73399261 I10 lisinopril 10mg and is well tolerated once and will conthome readings are good cont the current tx Uterine leiomyoma 641985 05 D25.9 removed and is doing a great deal better no more cramping and bleeding is gone Varicose v eins of lower extremity 73746573 I83.893 will refer to another dr and have her seen by vascular from another practice Irregular blood group antibody detected 378893824 R89.4 will neeed to keep this in mind ofor future surgeries etc [id number] Mio Bridges [facility] [address] [facility] [address],[place] [address] 12/24/2023 08:55:01 12/24/2023 10:42:07 Active or passive immunization 287468022 Z23 utd Adult heal th examination 821153543 Z00.00 also her bp is much improved with the new lisinopril med and she feels ok with this Volvulus of colon 908859 3 K56.2 she will need to have this eval Essential hypertension 89720982 I10 lisinopril caused epistaxis we will need to change med to triamteren e/hctz Varicose v eins of lower extremity 41689343 I83.893 following vascular 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 2 [id number] Mio Bridges [facility] [address] [facility] [address] [place] [place], it[place] [address] 04/21/2024 13:48:33 04/21/2024 14:36:44 Depression screening 571375939 Z13.31 negative Essential hypertension 72722562 I10 losartan is doing great Amenorrhea 79270370 N91. 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 2 she is clearly post menopausal now Menopause 738556950 N95. 1 [id number] Mio Bridges [facility] [address] [facility] [place], [place] [address] 03/08/2025 08:13:11 03/08/2025 11:57:00 Essential hypertension 80612583 I10 losartan is doing greathome readings are doing good Menopause 203890380 N95. 1 doing great with hormonal therapy Depression screening 171 439425 Z13.31 negative Low back pain 084971527 M54.50 seems to be worsening without a injury Health Concerns Section Related Observation LastModified by Organization Detai ls LastModified Time None Recorded Concern Status LastModified by Organization Details LastModified Time None Recorded Advance Directives Directive None Recorded Payers Encounter Date Sequence Insurance Name Policy Number Policy Scherer Covered Member ID Scherer Member ID Guarantor Name 12/24/2023 1 [facility] [id number] 1 Corin Mahsa Twine [id number] Corin Twine 02/19/2024 1 [facility] [id number] 1 Corin J Twine [id number] Corin Twine 04/21/2024 1 [facility] [employer] TYPE I (HMO) [id number] Corin J Twine [id number] Corin Twine 08/07/2024 1 [facility] [employer] TYPE I (HMO) [id number] Corin J Twine [id number] Corin Twine 03/08/2025 1 [facility] [employer] TYPE I (HMO) [id number] Corin J Twine [id number] Corin Twine Notes Date Note Type Note Provider Name and Address Organization Details Recorded Time 12/24/19 24 text/htm l here for annual wellnessbut relates that she is having episodes of severe joint painthought to be lisinopril which was stopped for the nose bleeds but has not gotten bettersince stopping the lisinopril her nose bleeds stoppedshe is also going through menopause and having a lot of symptoms from this Mio Bridges DO [address] [place], [address], [facility] 12/24/2023 09:30:50 02/19/20 24 text/htm l Care Management - HypertensionReported bypatient.Self Care:not under emotional stress Severity:symptoms are improving; does not interfere with daily activities Associated Symptoms:no dizziness; no lightheadedness; no chest pain; no shortness of breath; no palpitations; no edema; no calf muscle cramps; no blurred vision; no confusion; no headaches; no fatigue here for rechkdoing good and is doing well with bp as evid with home readings Mio Bridges DO [address] [place], [address], [facility] 02/19/2024 11:51:18 04/21/20 24 text/htm l here for rechk of her bp states that the hand was more of a cts and that he had wondered about her c spine and wanted an mri but pt reluctantneuro daylin is reviewedtold to get b12 lab relates that she is taking mg supp which helped her elbowsalso he told her he was worried about c spineshe has gotten a better pillow and her numb hands are better!!!!discussed use of mg and also of glucosamine Mio Bridges DO [address] [place], [address], [facility] 04/21/2024 14:22:29 08/07/20 24 text/htm l here for rechk of bp pt doing well and relates no issue with medhome bps reviewed and doing fantastic with avg 110 sys and 70's diast taking glucosaminemg+ causing loose bowels etc Mio Bridges DO [address] [place], [address], [facility] 08/07/2024 12:17:15 03/08/20 25 text/htm l Care Management - [...] at night gets worsestanding prolonged times Mio Bridges DO [address] [facility], [place], [address], [facility] 03/08/2025 11:21:24 OBGyn Episode No OBEpisode recorded.
--- OUTSIDE RECORDS SUMMARY | 2025-03-08 15:52 | XMS_ITS | Clinical Summary ---
Author Organization [facility] Address [address] [place] [address] Care Team Providers Care Package Dyer Name Role Phone Mio Pascual Primary Care Provider [phone] Allergies Active Allergy Reactions Criticality Noted Date Comments Formaldehyde (Bulk) Unknown 11/08/2023 Social History Tobacco Use Types Packs/Day Years Used Date Smoking Tobacco: Never Smokeless Tobacco: Never Tobacco Cessation:Counseling Given: Not Answered Alcohol Use Standard Drinks/Week Comments Yes 1 (1 standard drink = 0.6 oz pur e alcohol) socially Comments No Sex and Gender Information Value Date Recorded Sex Assigned at Not on file Legal Sex Female 12:05 AM EDT Gender Identity Not on file Sexual Orientation Not on file Last Filed Vital Signs Vital Sign Reading Time Taken Comments Blood Pressure 124/88 11/08/2023 12:49 PM EST Pulse 94 11/08/2023 12:49 PM EST Temperature 36.8 ??C (98.2 ??F) 11/08/2023 10:[address] Respiratory Rate 18 11/08/2023 12:49 PM EST Oxygen Saturation 98% 11/08/2023 12:49 PM EST Inhaled Oxygen Concentration - - Weight 62.1 kg (137 lb) 11/08/2023 10:26 AM EST Height 162.6 cm (5' 4 ) 11/08/2023 10:26 AM EST Body Mass Index 23.52 11/08/2023 10:26 AM EST Plan of Treatment Health Maintenance Due Date Last Done Comments Cologuard 1969 Colon Cancer Screening 1969 Colonoscopy 1969 FOBT / Fit Test 1969 HIV Screening 1969 Hepatitis C Screening 1969 Sigmoidoscopy 1969 Hepatitis B Vaccines (1 of 3 - 19+ 3-dose series) 1988 Pneumococcal Vaccine: 50+ Ye ars (1 of 1 - PCV) 2019 Zoster Vaccines (1 of 2) 2019 COVID-19 Vaccine (4 - 2023-2 5 season) 2024 11/22/2021, 04/05/2021, 03/15/2021 Alcohol/Substance Use Screening 11/25/2024 Depression Screening and Follow-Up 11/25/2024 Social Drivers of Health Nona ual Screening 11/25/2024 Influenza Vaccine (Season Ended) 2025 Mammogram 01/09/2026 01/09/2024, 07/2023, 12/28/2021, Additional history exists DTaP,Tdap,and Td Vaccines (2 - Td or Tdap) 04/02/2029 04/02/2019 RSV Vaccine (60+ years old a nd patients) (1 - 1-dose 75+ series) 2044 Procedures * Due to [place] [employer] law, this organization might not be sharing negative HIV tests. Procedure Name Priority Date/Time Associated Diagnosis Comments AUDIE BILATERAL SCREENING DIGITAL MAMMOGRAM WITH AGUSTIN Routine 01/09/2024 1:34 PM EST Encounter for screening mammogram for breast cancer from Last 3 Months or Most Recently Relevant to Health Maintenance Results * Due to [place] [employer] law, this organization might not be sharing negative HIV tests. * AUDIE Bilateral Screening Digital Mammogram With Agustin (01/09/2024 1:34 PM EST) Anatomical Region Laterality Modality Breast Bilateral Mammography Narrative 01/11/2024 3:05 PM EST EXAMINATION AUDIE Bilateral Screening Digital Mammogram With Agustin. INDICATION Screening. CC and MLO views were obtained. R2 CAD was used in the interpretation of this study. COMPARISON 2020, 2021 and 2022. Bilateral Breast Findings: The breasts are heterogeneously dense, which may obscure small masses. No suspicious masses, unexplained areas of architectural distortion or suspicious grouped calcifications are seen in either breast. IMPRESSION No specific evidence of malignancy. BI-RADS?? ATLAS category (overall): 1 - Negative MANAGEMENT Recommend annual screening mammography. The patient was entered into a reminder system with a target date for their next mammogram. If this radiology report contains a blank impression section, it is an incomplete radiology report. ??Please contact the interpreting radiologist or applicable radiology division as soon as possible to obtain the completed interpretation. us Mio Pascual IMG BI PROCEDURES Final Result from Last 3 Months or Most Recently Relevant to Health Maintenance Insurance [facility] Care Teams Package Dyer Relationship Specialty Start Date End Date Mio Pascual [address] [place] [id number] PCP - General Internal Medicine 11/08/23
--- OUTSIDE RECORDS SUMMARY | 2025-03-08 15:52 | XMS_ITS | Data Portability ---
Author Organization [facility] [employer], svmg_admin Address [address] [place] [id number] Care Team Providers Care Top Knitter Name Role Phone RAGINI BRIDGES Primary Care Provider Assessment No assessment recorded. Plan of Treatment Reminders Order Date Submit Date Provider Last Modified By Organization Details Last Modified Time Details Appointments None recorded. Lab pap, IG + HPV, cervical 2022 023 SUGEY [facility], [address] [place] [address], [address], 3 18:06:35 test, urine 2021 022 Not available 00:24:54 Referral None recorded. Procedures None recorded. Surgeries hysteroscop y, surgical, with biopsy of endometrium and/or polypectomy (SURG) 2021 022 [email or web address] Not available 09:30:24 hysteroscop y, with endometrial ablation (SURG) 2021 022 SUGEY Not available 14:41:33 Imaging None recorded. Medication Orders Edna 28 0.5 mg/1 mg/0.5 mg-35 mcg tablet 2022 023 [email or web address] [facility], [address], [facility] [address], [place], [id number], 3 16:54:52 Patient TargetsNo targets recorded. 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 I explained nature of hysterorscopy D&C polypectomy and endometrial ablation, also discussed other alternatives to treat for heavy menstrual periods due to fibroid/polyp including medical treatment vs. procedure vs. surgical options. Explained to her that uterine fibroid likely benign, will shrink after menopause. However, if polyp causing heavy bleeding, would recommend hysteroscopy D&C. Sometimes polyp can contain precancer or cancer cell so ablation may need to be defer if polyp does not look benign. Sometimes hard to tell on gross visualization and will need pathology result. However, no record available, will need to get record before detail plan. Total time spent for encounter: 45 min. Not available 08/23/2022 21:26:48 10/24/2022 [id number] uterine fibroids : care instructions Not available 10/25/2022 00:29:13 10/29/2022 [id number] heavy menstrual periods: care instructions Not available 11/01/2022 00:02:50 learning about healthy weight Not available 11/01/2022 00:02:50 Patient appears well, benign abdominal exam, pelvic ultrasound today shows globular uterus, uterine fibroid measures about 4.5 cm, there was no echogenic tract seen by ultrasound, there is moderate amount of pelvic fluid but no ovarian cyst. Patient was advised to continue oral labetalol but she continues to decline. She said that she will speak with her PCP about her blood pressure control. She is advised to monitor symptoms such as fever, worsening abdominal pain, nausea, vomiting, diarrhea, headache, visual change, chest pain, shortness of breath. Return for follow-up in 3 days. Not available 11/01/2022 00:02:49 Reason for Referral None Reported. Results Created Date Observation Date Name Description Value Unit Range Abnormal Flag Note LastModifiedBy Organization Detail LastModifiedTime 10/24/20 22 10/24/2022 pregn esperanza test, urine HCG Results negati ve Not Available [facility] - Alex Shah [address], [place], [address], 10/24/2022 15:43:24 10/25/20 22 10/25/2022 CBC WITH DIFFE RENTI AL/PL ATELE T WBC 5.9 x1000 /uL 3.9-11 .0 Not Available [facility] [address] [facility], [place], [address], 10/25/2022 15:06:51 10/25/20 22 10/25/2022 CBC WITH DIFFE RENTI AL/PL ATELE T RBC 3.88 mil/u L 3.77-5 .28 Not Available [facility] [address] [facility], [place], [address], 10/25/2022 15:06:51 10/25/20 22 10/25/2022 CBC WITH DIFFE RENTI AL/PL ATELE T hemoglobin 11.7 g/dL 11.5-1 5.0 Not Available [facility] [address] [facility], [place], [address], 10/25/2022 15:06:51 10/25/20 22 10/25/2022 CBC WITH DIFFE RENTI AL/PL ATELE T hematocrit 35.2 % 34.0-4 4.0 Not Available [facility] [address] [facility], [place], [address], 10/25/2022 15:06:51 10/25/20 22 10/25/2022 CBC WITH DIFFE RENTI AL/PL ATELE T MCV 91 fL 79-97 Not Available [facility] [address] [facility], [place], [address], 10/25/2022 15:06:51 10/25/20 22 10/25/2022 CBC WITH DIFFE RENTI AL/PL ATELE T MCH 30 pg 27-33 Not Available [facility] [address] [facility], [place], [address], 10/25/2022 15:06:51 10/25/20 22 10/25/2022 CBC WITH DIFFE RENTI AL/PL ATELE T MCHC 33 g/dL 31-36 Not Available [facility] [address] [facility], [place], [address], 10/25/2022 15:06:51 10/25/20 22 10/25/2022 CBC WITH DIFFE RENTI AL/PL ATELE T RDW 13.1 % 11.4-1 4.4 Not Available [facility] [address] [facility], [place], [address], 10/25/2022 15:06:51 10/25/20 22 10/25/2022 CBC WITH DIFFE RENTI AL/PL ATELE T platelets 273 x1000 /uL 150-45 0 Not Available [facility] [address] [facility], [place], [address], 10/25/2022 15:06:51 10/25/20 22 10/25/2022 CBC WITH DIFFE RENTI AL/PL ATELE T neutrophils 66 % Not Available [facility] [address] [place], [address], 10/25/2022 15:06:51 10/25/20 22 10/25/2022 CBC WITH DIFFE RENTI AL/PL ATELE T lymphs 24 % Not Available [facility] [address] [place], [address], 10/25/2022 15:06:51 10/25/20 22 10/25/2022 CBC WITH DIFFE RENTI AL/PL ATELE T monocytes 8 % Not Available [facility] [address] [facility], [place], [address], 10/25/2022 15:06:51 10/25/20 22 10/25/2022 CBC WITH DIFFE RENTI AL/PL ATELE T eos 1 % Not Available [facility] [address] [facility], [place], [address], 10/25/2022 15:06:51 10/25/20 22 10/25/2022 CBC WITH DIFFE RENTI AL/PL ATELE T basos 1 % Not Available [facility] [address] [facility], [place], [address], 10/25/2022 15:06:51 10/25/20 22 10/25/2022 CBC WITH DIFFE RENTI AL/PL ATELE T neutrophils (absolute) 3.9 x1000 /uL 1.8-7. 0 Not Available [facility] [address] [facility], [place], [address], 10/25/2022 15:06:51 10/25/20 22 10/25/2022 CBC WITH DIFFE RENTI AL/PL ATELE T lymphs (absolute) 1.4 x1000 /uL 0.7-4. 5 Not Available [facility] [address] [facility], [place], [address], 10/25/2022 15:06:51 10/25/20 22 10/25/2022 CBC WITH DIFFE RENTI AL/PL ATELE T monocytes(ab solute) 0.5 x1000 /uL 0.1-0. 8 Not Available [facility] [address] [facility], [place], [address], 10/25/2022 15:06:51 10/25/20 22 10/25/2022 CBC WITH DIFFE RENTI AL/PL ATELE T eos (absolute) 0.1 x1000 /uL 0.0-0. 4 Not Available [facility] [address], [place], [address], 10/25/2022 15:06:51 10/25/20 22 10/25/2022 CBC WITH DIFFE RENTI AL/PL ATELE T baso (absolute) 0.1 x1000 /uL 0.0-0. 2 Not Available [facility] [address], [place], [address], 10/25/2022 15:06:51 10/25/20 22 10/25/2022 CBC WITH DIFFE RENTI AL/PL ATELE T hematology comments: NONE Not Available [facility] [address], [place], [address], 10/25/2022 15:06:51 10/25/20 22 10/25/2022 BASIC METAB OLIC PANEL (8) glucose 89 mg/dL 65-99 Not Available [facility] [address], [place], [address], 10/25/2022 15:06:53 10/25/20 22 10/25/2022 BASIC METAB OLIC PANEL (8) BUN 11 mg/dL 5-26 Not Available [facility] [address] [place], [address], 10/25/2022 15:06:53 10/25/20 22 10/25/2022 BASIC METAB OLIC PANEL (8) creatinine 0.84 mg/dL 0.5-1. 5 Not Available [facility] [address] [place], [address], 10/25/2022 15:06:53 10/25/20 22 10/25/2022 BASIC METAB OLIC PANEL (8) eGFR 83.0 mL/mi n > 59 Not Available [facility] [address] [place], [address], 10/25/2022 15:06:53 10/25/20 22 10/25/2022 BASIC METAB OLIC PANEL (8) BUN/creatini ne ratio 13 8-27 Not Available [facility] [address] [facility] [place], [address], 10/25/2022 15:06:53 10/25/20 22 10/25/2022 BASIC METAB OLIC PANEL (8) sodium 139 mEq/L 134-14 4 Not Available [facility] [address] [facility] [place], [address], 10/25/2022 15:06:53 10/25/20 22 10/25/2022 BASIC METAB OLIC PANEL (8) potassium 4.1 mEq/L 3.6-5. 6 Not Available [facility] [address] [place], [address], 10/25/2022 15:06:53 10/25/20 22 10/25/2022 BASIC METAB OLIC PANEL (8) chloride 101 mEq/L 96-109 Not Available [facility] [address] [place], [address], 10/25/2022 15:06:53 10/25/20 22 10/25/2022 BASIC METAB OLIC PANEL (8) carbon dioxide, total 27 mEq/L 20-32 Not Available [facility] [address] [place], [address], 10/25/2022 15:06:53 10/25/20 22 10/25/2022 BASIC METAB OLIC PANEL (8) calcium 9.0 mg/dL 8.7-10 .2 Not Available [facility] [address] [place], [address], 10/25/2022 15:06:53 10/26/20 22 10/26/2022 CBC 5 PART DIFF white blood count 10.3 x1000 /uL 3.9-11 .0 Not Available [facility] [address], [address], 10/26/2022 19:48:12 10/26/20 22 10/26/2022 CBC 5 PART DIFF red blood cell count 4.18 mil/u L 3.70-5 .10 Not Available [facility] [address], [address], 10/26/2022 19:48:12 10/26/20 22 10/26/2022 CBC 5 PART DIFF hemoglobin 12.5 g/dL 11.5-1 5.0 Not Available [facility] [address], [address], 10/26/2022 19:48:12 10/26/20 22 10/26/2022 CBC 5 PART DIFF hematocrit 38.0 % 34.0-4 4.0 Not Available [facility] [address] [place] [address], [address], 10/26/2022 19:48:12 10/26/20 22 10/26/2022 CBC 5 PART DIFF MCV 91 fL 80-100 Not Available [facility] [address] [place] [address], [address], 10/26/2022 19:48:12 10/26/20 22 10/26/2022 CBC 5 PART DIFF MCH 30 pg 27-33 Not Available [facility] [address], [address], 10/26/2022 19:48:12 10/26/20 22 10/26/2022 CBC 5 PART DIFF MCHC 33 g/dL 31-36 Not Available [facility] [address], [address], 10/26/2022 19:48:12 10/26/20 22 10/26/2022 CBC 5 PART DIFF RDW 13.0 % 11.4-1 4.4 Not Available [facility] [address], [address], 10/26/2022 19:48:12 10/26/20 22 10/26/2022 CBC 5 PART DIFF platelet count 250 x1000 /uL 150-45 0 Not Available [facility] [address], [address], 10/26/2022 19:48:12 10/26/20 22 10/26/2022 CBC 5 PART DIFF MPV 11.5 fL 7.0-11 .0 high Not Available [facility] [address], [address], 10/26/2022 19:48:12 10/26/20 22 10/26/2022 CBC 5 PART DIFF neutrophils 94 % Not Available [facility] [address], [address], 10/26/2022 19:48:12 10/26/20 22 10/26/2022 CBC 5 PART DIFF lymphocytes 5 % Not Available [facility] [address], [address], 10/26/2022 19:48:12 10/26/20 22 10/26/2022 CBC 5 PART DIFF monocytes 1 % Not Available [facility] [address], [address], 10/26/2022 19:48:12 10/26/20 22 10/26/2022 CBC 5 PART DIFF eosinophils 0 % Not Available [facility] [address], [address], 10/26/2022 19:48:12 10/26/20 22 10/26/2022 CBC 5 PART DIFF basophils 0 % Not Available [facility] [address], [address], 10/26/2022 19:48:12 10/26/20 22 10/26/2022 CBC 5 PART DIFF neutrophils (#) 9.7 x1000 /uL 1.8-7. 0 high Not Available [facility] [address], [address], 10/26/2022 19:48:12 10/26/20 22 10/26/2022 CBC 5 PART DIFF lymphocytes (#) 0.5 x1000 /uL 0.7-4. 5 low Not Available [facility] [address], [address], 10/26/2022 19:48:12 10/26/20 22 10/26/2022 CBC 5 PART DIFF monocytes (#) 0.1 x1000 /uL 0.1-0. 8 Not Available [facility] [address], [address], 10/26/2022 19:48:12 10/26/20 22 10/26/2022 CBC 5 PART DIFF eosinophils (#) 0.0 x1000 /uL 0.0-0. 4 Not Available [facility] [address], [address], 10/26/2022 19:48:12 10/26/20 22 10/26/2022 CBC 5 PART DIFF basophils (#) 0.0 x1000 /uL 0.0-0. 2 Not Available [facility] [address], [address], 10/26/2022 19:48:12 10/26/20 22 10/26/2022 CBC 5 PART DIFF note Order ing physi brian: Shaunna Cyr Other provi ders: Jesus Webber , Jesus Webber , Jesus Webber , Non Physi brian, , , Not Available [facility] [address], [address], 10/26/2022 19:48:12 10/26/20 22 10/26/2022 BASIC METAB OLIC PANEL glucose 123 mg/dL 65-99 high Not Available [facility] [address], [address], 10/26/2022 19:48:13 10/26/20 22 10/26/2022 BASIC METAB OLIC PANEL BUN 14 mg/dL 5-26 Not Available [facility] [address], [address], 10/26/2022 19:48:13 10/26/20 22 10/26/2022 BASIC METAB OLIC PANEL creatinine 1.36 mg/dL 0.5-1. 5 Not Available [facility] [address], [address], 10/26/2022 19:48:13 10/26/20 22 10/26/2022 BASIC METAB OLIC PANEL BUN/creat ratio 10 8-27 Not Available [facility] [address], [address], 10/26/2022 19:48:13 10/26/20 22 10/26/2022 BASIC METAB OLIC PANEL glom filt rate, est 46.6 mL/mi n > 59 low Not Available [facility] [address], [address], 10/26/2022 19:48:13 10/26/20 22 10/26/2022 BASIC METAB OLIC PANEL sodium 138 mEq/L 134-14 4 Not Available [facility] [address], [address], 10/26/2022 19:48:13 10/26/20 22 10/26/2022 BASIC METAB OLIC PANEL potassium 4.4 mEq/L 3.6-5. 6 Not Available [facility] [address], [address], 10/26/2022 19:48:13 10/26/20 22 10/26/2022 BASIC METAB OLIC PANEL chloride, serum 103 mEq/L 96-109 Not Available [facility] [address], [address], 10/26/2022 19:48:13 10/26/20 22 10/26/2022 BASIC METAB OLIC PANEL carbon dioxide 22 mEq/L 20-32 Not Available [facility] [address], [address], 10/26/2022 19:48:13 10/26/20 22 10/26/2022 BASIC METAB OLIC PANEL anion gap 13.0 8-15 Not Available [facility] [address], [address], 10/26/2022 19:48:13 10/26/20 22 10/26/2022 BASIC METAB OLIC PANEL calcium 8.6 mg/dL 8.3-10 .0 Not Available [facility] [address], [address], 10/26/2022 19:48:13 10/26/20 22 10/26/2022 BASIC METAB OLIC PANEL note Order ing physi brian: Shaunna Cyr Other provi ders: Zrocio Webber , Jesus Webber , Jesus Webber , Non Physi brian, , , Not Available [facility] [address], [address], 10/26/2022 19:48:13 12/13/19 23 12/18/2022 IGP, APTIM A HPV diagnosis: Commen t NEGAT IAN FOR INTRA EPITH ELIAL CHRIS Guerra OR TENZIN JORDAN . Not Available [facility] [address] [facility], [place], [address], 12/18/2022 18:06:35 12/13/19 23 12/18/2022 IGP, APTIM A HPV specimen adequacy: Commen t Satis facto ry for evalu ation . Endoc ervic al and/o r squam ous metap lasti c cells (endo cervi eirc compo nent) are prese nt. Not Available [facility] [address] [facility], [place], [address], 12/18/2022 18:06:35 12/13/19 23 12/18/2022 IGP, APTIM A HPV clinician provided ICD10: Commen t Z01.4 19 Not Available [facility] [address] [facility], [place], [address], 12/18/2022 18:06:35 12/13/19 23 12/18/2022 IGP, APTIM A HPV performed by: Varinder Cain (ASCP ) Not Available [facility] [address] [place], [address], 12/18/2022 18:06:35 12/13/1912/18/2022 IGP, APTIM A HPV . . Not Available [facility] [address] [place], [address], 12/18/2022 18:06:35 12/13/1912/18/2022 IGP, APTIM A HPV note: Loida benitez The Pap smear is a scree blanquita test desig kody to aid in the detec tion of jayde ligna nt and malig nant condi tions of the uteri ne cervi x. It is not a diagn ostic proce dure and shoul d not be used as the sole means of detec ting cervi eric cance r. Both false -posi tive and false -nega tive repor ts do occur . Not Available [facility] [address] [place], [address], 12/18/2022 18:06:35 12/13/1912/18/2022 IGP, APTIM A HPV test methodology: Loida benitez This liqui d based ThinP rep(R ) pap test was scree kody with the use of an image guide jerson blanc. Not Available [facility] [address] [place], [address], 12/18/2022 18:06:35 12/13/1912/18/2022 IGP, APTIM A HPV HPV aptima Negati ve negati ve This nucle ic acid ampli ficat ion test detec ts fourt een high- risk HPV types (16,1 8,31, 33,35 ,39,4 5,51, 52,56 ,58,5 9,66, 68) witho ut diffe renti ation . Not Available [facility] [address] [facility], [place], [address], 12/18/2022 18:06:35 10/24/20 22 10/24/2022 US, salin e infus ed uteru s No observ ation record ed. [facility], [address], [place], [address], 12/26/2022 08:25:59 10/24/20 22 10/24/2022 US, salin e infus ed uteru s No observ ation record ed. [email or web address] [facility], [address], [place], [address], 12/26/2022 08:26:56 10/25/20 22 10/25/2022 elect eveline maza am [facility] al [address] [place] [address] ANNAMARIE T: PHOENIX ELLIS REG REF/ : WE 4034 HEART RATE 85 RR Interv al 706 Atrial Rate 85 P-R Interv al 175 P Durati on 126 P Horizo ntal [place] 4 P Front [place] 76 Q Onset 507 QRSD Interv al 85 QT Interv al 388 QTcB 462 QTcF 436 QRS Horizo ntal [place] 9 QRS [place] 57 I-40 Horizo ntal [place] 62 I-40 Front [place] 85 T-40 Horizo ntal [place] -1 T-40 Front [place] 46 T Horizo ntal [place] 41 T Wave [place] 53 S-T Horizo ntal [place] 92 S-T Front [place] 76 ECG Severi ty - NORMAL ECG - ECG Impres davy Sinus rhythm _ (Elect rodolfo chauhan Signed by) Trans D T: 1250 Signed D T: 1502 Report #: [id number] Orderi ng physic fabiana: Jesus Webber Other provid ers: Jesus Webber, Jesus Webber, , Non Physic fabiana, , , [facility] (Radiology) [address] [place] [address], [address], 10/28/2022 14:16:28 10/26/20 22 10/26/2022 CT, abdom en + pelvi s, w/o contr ast [facility] [address] [place] [address], [address] Name: PHOENIX ELLIS : [birth year] Date of Servic e: [birth year] Acct Number : [id number] Order Number : [id number] Locati on: [id number] Report Number : [id number] Servic e: ADM Darek/ME D Reques ting Physic fabiana: Ella Cyr PA-C Catego ry: COMPUT ED TOMOGR APHY [facility] Exam: CT ABD PELVIS W/O CONTRA ST Access ion #: [id number] Signs/ Sympto ms: Questi on uterin e perfor ation s/p D C Report Status : Sig kody CT scan abdome n and pelvis withou t contra st Histor y: Questi on uterin e perfor ation s/p D C, hyster oscopy and myomec marya. Compar hilda: None Imagin g throug h the abdome n and pelvis is perfor med withou t contra st as per the renal stone protoc ol. Ware l and sagitt al reform atted images are obtain ed. Adapti ve Iterat ain Dose Reduct ion (AIDR) and NEMA XR 25 dose check softwa re, were used to reduce radiat ion dose to the patien t. Evalua tion of the parenc hymal struct ures is limite d by the noncon trast techni que. Findin gs Lung bases: Minima l atelec tasis is seen. Normal heart size. Hepato biliar y: Small cyst right latera l lobe of liver. No ductal dilata tion. Gallbl adder is mildly disten ded. Spleen : Unrema rkable . Adrena l glands : Unrema rkable . Pancre as: Unrema rkable . Kidney s: No renal stone or obstru ction. Bilate ral perine phric strand ing is seen with a small amount of bilate ral perine phric fluid on both sides as well. Stomac h/GI: Oral contra st was not given. Scatte red high densit y is seen throug hout large bowel. No bowel obstru ction is noted. 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 Vessel s: Aorta and IVC are unrema rkable except for minor athero sclero tic change s. Bone/s oft tissue s: Lower lumbar spine disc degene rative change s are seen. Pelvis : Bulbou s appear ance of the uterin e corpus is seen. At the anteri or myomet rium, there is a curvil inear faintl y visual ized hypode nse focus which may repres ent a subser osal hemato ma. There is no eviden ce of extrau terine hemato ma. The urinar y bladde r is nearly comple tely decomp ressed . Small amount of fluid is seen in the adnexa l region s as well as modera tely in the depend ent pelvis . Impres davy: 1. Bulbou s appear ance of the uterus with findin gs sugges tive of a subser osal anteri or hemato ma. No eviden ce of extrau terine hemato ma. 2. Fluid is seen in the pelvis . 3. Overal l findin gs can BE seen with recent myomet rial surger y, or potent ial myomet rial injury . Findin gs discus sed with Dr. Lee at 022 7:09 PM Date/T sophia of Dictat ion: 1908 Radiol ogy Reside nt (if applic able): Approv ed By Attend [facility] Radiol ogist: Jerson Hoffman MD 12/02/ 22 1909 Orderi ng physic fabiana: Ella Cyr Other provid ers: Zung Webber, Jesus Webber, Jesus Webber, Non Physic fabiana, , , [email or web address] [facility] (Radiology) [address] [place], [address], 11/21/2022 09:33:07 10/27/20 22 10/25/2022 elect eveline colungagr am, routi ne ECG, 12 leads min No observ ation record ed. [facility] ([facility]) [address] [place], [address], 10/30/2022 00:57:27 12/27/19 23 10/29/2022 US, salin e infus ed uteru s No observ ation record ed. [facility], [address], [place], [address], 12/27/2022 14:59:39 12/27/19 23 10/29/2022 US, pelvi s No observ ation record ed. [email or web address] Not Available 2022 11:31:02 02/09/20 23 12/25/2022 CT, abdom en + pelvi s, w/ contr ast No observ ation record ed. [email or web address] [facility] (Radiology) [address] [place], [address], 02/21/2023 12:42:01 02/09/20 23 12/25/2022 CT, abdom en + pelvi s, w/o contr ast No observ ation record ed. [email or web address] [facility] (Radiology) [address] [place], [address], 02/21/2023 12:42:02 02/22/20 23 12/26/2022 XR, kidne y + urete r + bladd er No observ ation record ed. [email or web address] [facility] (Radiology) [address] [place], [address], 02/21/2023 12:42:02 Result Notes None recorded. Problems No Known Problems Procedures Surgical History Date Name Laterality Status Provider Name and Address Organization Details Recorded Time 04/05/20 23 hysterectomy completed Esequiel Knowles [facility] 05/15/2023 14:04:43 10/26/20 22 HYSTEROSCOPY, WITH ENDOMETRIAL ABLATION (SURG) completed Jesus Webber MD [address] [place] [address], [phone], [facility] 11/25/2022 11:13:32 10/24/20 22 Saline Infusion Sonogram (SIS) completed Jesus Webber MD [address] [place] [address], [phone], [facility] 10/25/2022 00:24:50 12/28/19 22 completed Marquita Badillo [facility] 10/23/2022 16:25:20 06/08/20 19 Colonoscopy completed Cici James [facility]. 08/21/2022 11:51:12 Imaging Results Imaging Date Name Status LastModified by Organization Details LastModified Time 10/24/2022 US, saline infused uterus [email or web address] [facility] [address], [address], 12/26/2022 08:25:59 10/24/2022 US, saline infused uterus completed [email or web address] [facility] [address], [address], 12/26/2022 08:26:56 10/25/2022 electrocardiogram completed [facility] (Radiology) [address] [place] [address], [id number], 10/28/2022 14:16:28 10/26/2022 CT, abdomen + pelvis, w/o contrast completed [email or web address] [facility] (Radiology) [address] [place] [address], [id number], 11/21/2022 09:33:07 10/25/2022 electrocardiogram, routine ECG, 12 leads min completed [facility] (Central Scheduling For Imaging And Labs) [address] [place], [address], 10/30/2022 00:57:27 10/29/2022 US, saline infused uterus completed [email or web address] [facility], [address], [place], [address], 12/27/2022 14:59:39 10/29/2022 US, pelvis completed [email or web address] Information no t available 02/08/2023 11:31:02 12/25/2022 CT, abdomen + pelvis, w/ contrast completed [email or web address] [facility] (Radiology) [address] [place] [address], [id number], 02/21/2023 12:42:01 12/25/2022 CT, abdomen + pelvis, w/o contrast completed [email or web address] [facility] (Radiology) [address] [place] [address], [id number], 02/21/2023 12:42:02 12/26/2022 XR, kidney + ureter + bladder completed [facility] (Radiology) [address] [place] [address], [id number], 02/21/2023 12:42:02 Procedure Notes None recorded. Medical Equipment None Reported. Allergies Allergen ID Allergen Name Allergen Category Reaction Reaction Severity Criticality Documentation Date Start Date Code Code System Note Provider Name and Address Organization Details Recorded Time 742336 formaldeh yde environme nt,medica tion other mild low 08/21/2022 4530 RxNorm Cici benitez [place] - [facility]37 Medications Name Sig Start Date Stop Date Status Note LastModified by Organization Details LastModified Time lisinopri l 10 mg tablet TAKE 1 TABLET BY MOUTH EVERY DAY active Not Available Not Available No t Available norethind alfreda acetate 5 mg tablet TAKE TWO TABLETS PER DAY ORALLY UNTIL BLEEDING STOPS AND THEN ONE ORALLY PER DAY 06/29 completed pt reports extreme SEs Not Available Not Available Not Available labetalol 100 mg tablet TAKE 1 TABLET BY MOUTH EVERY 8 HOURS 12/03 completed Not Available Not Available Not Available oxycodone 5 mg tablet TAKE 1 TABLET BY MOUTH EVERY 6 HOURS NEEDED FOR MODERATE TO SEVERE PAIN 05/14 completed Not Available Not Available Not Available Aranelle (28) 0.5 mg/1 mg/0.5 mg-35 mcg tablet Take 1 tablet every day by oral route. 05/14 completed pt now s/p hysterec marya Not Available Not Available Not Available Vitals Date Recorded Body height Body mass index (BMI) Body weight Body temperature Heart rate Oxygen saturation Oxygen saturation in Arterial blood by Pulse oximetry Systolic blood pressure Diastolic blood pressure Systolic blood pressure Diastolic blood pressure Provider Name and Address Organization Details Last Updated DateTime 2 162.56 cm 25.4 kg/m2 10331.6 7 g 98.2 [degF] 87 /min 98 % 98 % 166 mm[Hg] 112 mm[Hg] 169 mm[Hg] 113 mm[Hg] [facility] 2 11:49:13 Date Recorded Body height Body temperature Heart rate Oxygen saturation Oxygen saturation in Arterial blood by Pulse oximetry Systolic blood pressure Diastolic blood pressure Provider Name and Address Organization Details Last Updated DateTime 2 162.56 cm 98.7 [degF] 77 /min 100 % 100 % 171 mm[Hg] 91 mm[Hg] Cici James [facility] 2 15:48:52 Date Recorded Body height Body temperature Heart rate Oxygen saturation Oxygen saturation in Arterial blood by Pulse oximetry Body mass index (BMI) Body weight Systolic blood pressure Diastolic blood pressure Provider Name and Address Organization Details Last Updated DateTime 2 162.56 cm 98.6 [degF] 92 /min 99 % 99 % 26.1 kg/m2 65378.3 2 g 185 mm[Hg] 108 mm[Hg] Cici James [facility] 2 15:42:53 Date Recorded Body height Body mass index (BMI) Body weight Pain severity - 0-10 verbal numeric rating [Score] - Reported Systolic blood pressure Diastolic blood pressure Provider Name and Address Organization Details Last Updated DateTime 3 162.56 cm 24.5 kg/m2 73546.7 1 g 5 145 mm[Hg] 89 mm[Hg] Marquita Badillo [facility] 3 16:04:44 Social History Question Answer Notes LastModified by Organizat ion Details LastModified Time Tobacco Smoking Status Never Smoker Marquita Badillo [facility]. 08/28/2022 13:36:12 Do You Have An Advance Directive? No Information not available 08/28/2022 What Is Your Level Of Alcohol Consumption? Occasional Information not available 08/28/2022 Are You Blind Or Do You Have Difficulty Seeing? No Information not available 08/28/2022 Is Blood Transfusion Acceptable In An Emergency? Yes Information not available 08/28/2022 What Is Your Level Of Caffeine Consumption? Moderate Information not available 08/28/2022 Are You Currently Employed? Yes Information not available 08/28/2022 Are You Deaf Or Do You Have Serious Difficulty Hearing? No Information not available 08/28/2022 What Type Of Diet Are You Following? 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 Right Information not available 08/28/2022 If Pulse Oximetry Was Done: Is The Patient's Sp02 Less Than 93% On Room Air? No Information not available 08/14/2022 What Was The Date Of Your Most Recent Tobacco Screening? 12/13/2022 Information not available 12/13/2022 Have You Ever Been Counseled For Unhealthy Alcohol Use? No Information not available 10/29/2022 Do You Have Any Pets? No Information not available 08/28/2022 Do You Feel Stressed (tense, Restless, Nervous, Or Anxious, Or Unable To Sleep At Night)? [id number] Information not available 08/28/2022 Do You Use Any Illicit Or Recreational Drugs? No [email or web address] Information not available 08/14/2022 Do You Or Have You Ever Used Any Other Forms Of Tobacco Or Nicotine? No [email or web address] Information not available 08/14/2022 How Many Days In The Past Year Have You Consumed 4 Or More Drinks? 0 Information no t available 08/28/2022 Sex: Unknown Functional Status Question Answer Note LastModified by Organization D etails LastModified Time Are you able to care for yourself? Yes Information not available 08/28/2022 What is your exercise level? Moderate Information not available 08/28/2022 Mental Status None recorded. Family History Relationship Description Onset Age of this Age Resolved Age Notes LastModified by Organization Details LastModified Time Paternal Grandfather Myocardial infarction Not available 02/2022 13:35:56 Father Myocardial infarction Not available 02/2022 13:35:56 Mother Malignant tumor of colon Not available 02/2022 13:35:56 Mother Deep venous thrombosis Not available 02/2022 13:35:56 Unspecified Relation Family history of malignant neoplasm Not available 02/2022 13:35:56 Paternal Grandmother Myocardial infarction Not available 02/2022 13:35:56 Sister Hypertensive disorder Not available 02/2022 13:35:56 Sister Malignant tumor of colon Not available 02/2022 13:35:56 Sister Family history of malignant neoplasm Not available 02/2022 13:35:56 Medical History Condition Response Bleeding Problems Y Fibroids Y Gynecological History Statement/Question Response History of Endometriosis N Abnormal Pap Y 12/28/2021 Date of LMP 10/06/2022 Date of last mammogram 12/28/2021 Last Annual Exam Date 03/17/2019 Total # of Births 0 History of polycystic ovarian disease N Date of last pap 09/08/2021 Age at Menarche 11 Current Control Method BCPs Abnormal MMG Y Sexually Active? Y Number of Abortions 0 Menses Monthly Y Number of Pregnancies? 0 History of Abnormal Pap Smear? Y Colonoscopy 06/08/2019 Number of Miscarriages? 0 Obstetrics History GPAL:G 0 P 0 0 0 0 Immunizations Vaccine Type Date Status Note Provider Nam e and Address Organization Details Recorded Time COVID-19, mRNA, LNP-S, PF, 30 mcg/0.3 mL dose 04/05/2021 completed Marquita Stgermain null, [facility] 08/28/2022 13:36:22 COVID-19, mRNA, LNP-S, PF, 30 mcg/0.3 mL dose 03/15/2021 completed Marquita Stgermain null, [facility] 08/28/2022 13:36:22 Tdap 04/02/2019 completed Marquita Stgermain null, [facility] 08/28/2022 13:36:22 COVID-19, mRNA, LNP-S, PF, 30 mcg/0.3 mL dose 11/22/2021 completed Marquita Stgermain null, [facility] 08/28/2022 13:36:22 Past Encounters Encounter ID Performer Location Encounter Start Date Encounter Closed Date Diagnosis/Indication Diagnosis SNOMED-CT Code Diagnosis ICD10 Code Diagnosis Note [id number] MD [facility] [place] [address] [place] [id number] 08/21/2022 11:24:45 08/21/2022 13:03:53 Body mass index 25-29 - overweight 103806094 Z68.25 Menorrhagia 082624321 N9 2.0 Uterine leiomyoma 032756 05 D25.9 Polyp of corpus uteri 11 060564 N84.0 [id number] MD [facility] [place] [address] [place] [id number] 10/24/2022 14:48:50 10/24/2022 16:51:18 Screening procedure 00056344 Z13.9 Uterine leiomyoma 583234 05 D25.9 Ultrasound today shows at least 3 uterine fibroids noted. The largest 1 measured 3.39 x 3 x 3.19 cm. 2 of them are seen at the fundal area. They are seen displacing the endometria l cavity however sonohyster ogram showed that they are not submucosal . Abnormal u terine bleeding 2766932650 9100 N93.9 Patient reports menstrual bleeding continue to be heavier and longer despite taking OCP compliantl y. She is really hoping to have endometria l ablation done as soon as possible. We will have Brittaney to schedule for her. Polyp of corpus uteri 11 538315 N84.0 Outside biopsy report endometria l polyp. Sonohyster ogram shows an area at the fundal area that may suggesting endometria l polyp, however it is shadowed by the fibroid so unable to measure. [id number] MD ROBERTA [facility] [address] [address] 10/29/2022 14:39:41 10/29/2022 16:19:26 Body mass index 25-29 - overweight 032546794 Z68.25 Postoperative visit 1836 17008 Z09 Submucous leiomyoma of uterus 10644581 D25.0 Menorrhagia 006670924 N9 2.0 [id number] MD jose [facility] - [address] [id number] 12/13/2022 15:03:24 12/14/2022 07:48:00 Gynecologic examination 59322767 Z01.419 Normal breast and pelvic exam, pap done today, Corin states that she is already scheduled for mammogram at [place] , advised to have report sent to me when she goes for test. Menorrhagia 776994148 N9 2.0 Uterine leiomyoma 377284 05 D25.9 s/p partial ablation and myomectomy , explained to her that she may have some cramping after procedure. However, recommend medical treatment such as myfembree vs. depoprover a vs. hysterecto my. She may consider myfembree, she wants to do some research. Health Concerns Section Related Observation LastModified by Organization Detai ls LastModified Time None Recorded Concern Status LastModified by Organization Details LastModified Time None Recorded Advance Directives Directive N: Payers Encounter Date Sequence Insurance Name Policy Number Policy Scherer Covered Member ID Scherer Member ID Guarantor Name 08/21/2022 1 [facility] Corin Ellis [id number] Corin Ellis 10/24/2022 1 [facility] Corin [employer] [id number] Corin Desaie 10/29/2022 1 [facility] Corin Desaie [id number] Corin Ellis 12/13/2022 1 [facility] Corin Ellis [id number] Corin Ellis Notes Date Note Type Note Provider Name and Address Organization Details Recorded Time 08/21/2022 text/html Corin is 52 yo , G0, new patient to me, presents today for the complaint of heavy and painful menstrual period. 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 She moved to [facility] for the last five years but still going to [place] to see her GUIDE DOG MOBILITY INSTRUCTOR there. Since last year, her menstrual periods have become very heavy and crampy, lasting for 7 to 10 days and passing a lot of blood clots. Her GUIDE DOG MOBILITY INSTRUCTOR did work up including bloodwork and pelvic ultrasound and she was told that everything was normal. She was put on OCP, however she still has very heavy period. She had a endometrial biopsy on May 08, 2022 and the result was normal. She was switch to a second OCP which is norethindrone acetate. She took this pill for a few months but then stopped it on June 23 because of swelling legs and feet and weight gain 6 pounds. She had a repeat pelvic US on July 16 that show a 4.5 cm uterine fibroid and possible endometrial polyp. She was advised to go for a hysteroscopy D&C and polypectomy and possible endometrial ablation. However after all the things she went through, she decided to transfer care out, feeling that her GUIDE DOG MOBILITY INSTRUCTOR dismiss her concern.She reports last pap 09/12/21, normal, last MMG 12/28/21 also normal. LMP 08/14/22.Last colonoscopy 06/08/2019 Jesus Webber MD [address] [place], [phone], [facility] 08/23/2022 21:27:14 10/24/2022 text/html Corin is 52 ye ars old, with uterine fibroid, history of endometrial polyp, present today for sonohysterogram. She complains that her menstrual bleeding continue to be worsened, heavier despite taking control pills compliantly. Jesus Webber MD [address] [place], [address], [facility] 10/25/2022 00:31:41 10/29/2022 text/html Corin present today for postop visit. She underwent a hysteroscopy, D&C, polypectomy, submucosal myomectomy and endometrial ablation at [facility] on October 26, 2022. She is at postop day #3 today. The surgery was complicated by early discontinuation of endometrial ablation by the machine. Subsequently, it was noted that there was a false track anterior to the fibroid, concerning for possible uterine perforation. A cystoscopy was performed by urologist, Dr. Gee and showed that the bladder was intact, there was no bladder injury. The patient was advised to go to the hospital for CT scan of abdomen and pelvis which shows no extrauterine hemorrhage or hematoma. She subsequently also had severe hypertension. She was advised to stay overnight for observation as inpatient but signed herself out AMA. She was advised to follow-up closely. Her weekend was essentially uneventful even though her blood pressures start to rise up again. She was given prescription for labetalol 100 mg twice a day, took for first day but discontinued the next day as she did not feel right with the pills. She also thinks that the pill is not effective and her blood pressures resume high readings after 1 day taking pills. She has determined that she will not taking any oral blood pressure medication and would prefer to speak to her PCP. She also brought in the journal of her symptoms and blood pressure over the last 3 days. She states that she felt well last Saturday and the whole Saturday her blood pressure was normal. However Saturday, she felt nauseous and noticed swelling hands and feet and blood pressure starting to rise up. She also had a headache and did not eat well due to nausea. However this morning she no longer having nausea. She does have some pelvic cramping but not severe. She had 2 normal bowel movements and some vaginal spotting. Jesus Webber MD [address] [place], [address], [facility]. 11/01/2022 00:03:06 12/13/2022 text/html Corin is 52 yo G P , presents for annual GUIDE DOG MOBILITY IN[employer] exam today. On 10/26/2022, she underwent hysteroscopy D&C myomectomy and endometrial ablation. The ablation stopped after 37 second and a track was discovered anterior to myomectomy site, raising concern for uterine perforation. She was referred to [facility] for CT scan of abdomen and pelvis which did not show extrauterine bleeding, meaning no perforation. The CT scan was billed with wrong ICD code per her, advised to send me the copy of the code and I will contact billing department on her behalf. She also had severe HTN during that time. However, she did not want to stay overnight for observation and signed her self out. Since then, she has been put on lisinopril 5 mg daily for HTN. She reports that she is feeling pelvic cramping most of the time, dull pain but worse during menstrual periods. She reports last periods started on 12/03, lasted a while for 4 days, worse cramp to the level that she had to bend over, it was excrutiating. Currently periods have gone and she has no pain now. She is still taking OCP and need more refill for Edna. Last pap 09/08/2021 ASCUS but HPV neg. This has been going on since 08/2019. Last mammogram: 12/28/21, normal per patient Contraception: OCP Jesus Webber MD [address] [place], [address], [facility] [employer] [facility]. 12/15/2022 23:47:32 OBGyn Episode No OBEpisode recorded.
--- OUTSIDE RECORDS SUMMARY | 2025-03-08 15:52 | XMS_ITS | Referral Summary ---
Author Organization [facility] Address [address] [place] [address] Care Team Providers Care Tooth Cutter Clutch Name Role Phone Mio Pascual Primary Care Provider [phone] Allergies Active Allergy Reactions Criticality Noted Date [...] 11/08/2023 10:26 AM EST Plan of Treatment Not on file Procedures * Due to [place] state law, this organization might not be sharing negative HIV tests. Procedure Name Priority Date/Time Associated Diagnosis Comments AUDIE BILATERAL SCREENING DIGITAL MAMMOGRAM WITH AGUSTIN Routine 01/09/2024 1:34 PM EST Encounter for screening mammogram for breast cancer from Last 3 Months or Most Recently Relevant to Health Maintenance Results * Due to [place] state law, this organization might not be sharing [...] as possible to obtain the completed interpretation. Mio Ankur IM BI PROCEDURES Final Result from Last 3 Months or Most Recently Relevant to Health Maintenance Insurance [employer] Care Teams Tooth Cutter Clutch Relationship Specialty Start Date End Date Mio Pascual [address] [place] [id number] PCP - General Internal Medicine 11/08/23
== END 2025-03-08 13:42 | disposition home or self-care (01) ==
LOC: HO.XRAY 13:41
PROVIDERS: PCP Internal Medicine; Visit Provider Internal Medicine
DX: M54.50 Low back pain, unspecified (principal)
CPT/HCPCS: 72110

== ENCOUNTER → 2025-03-08 14:00 | Outpatient (BNV) | payer OTHER, SELFPAY | PROVIDERS: PCP Internal Medicine; Visit Provider Radiology Diagnostic Radiology | DX: M54.50 Low back pain, unspecified (principal) | CPT/HCPCS: 72110 ==

== ENCOUNTER 2025-03-09 07:46 | Outpatient (REF) | payer OTHER, SELFPAY ==
--- OUTSIDE RECORDS SUMMARY | 2025-03-09 07:49 | XMS_ITS | Encounter Summary ---
Author Organization [facility] Address [address] [place] [address] Phone Care Team Providers Care Wreath Machine Tender Name Role Phone Mio Pascual DO Primary Care Provider [phone] Mio Pascual DO Unavailable Encounter Details Date Type Department Care Team (Latest Contact Info) Description 12/23/2019 Transcribe Orders Virtual Department [address] [place] [address] Miriam Gauthier PA-C [address] [place] [address] Atypical chest pain (Primary Dx) Social History [...] pain documented in this encounter Care Teams Wreath Machine Tender Relationship Specialty Start Date End Date Mio Pascual DO PCP - General Internal Medicine 12/16/19 Mio Pascual DO [address] [place] [address] [place] [address] Insurance Assigned Provider 01/29/20 08/31/23 documented as of this encounter Additional Source Comments The information contained in this document represents components of the legal health record. It is not the complete legal health record.[facility]
--- OUTSIDE RECORDS SUMMARY | 2025-03-09 07:50 | XMS_ITS | Clinical Summary ---
Author Organization [facility] Address [address] [place] [address] Care Team Providers Care Purchase Order Checker Name Role Phone Pcp, No Primary Care Provider [phone] Allergies Active Allergy Reactions Criticality Noted Date Comments Formaldehyde Analogues Rash Low 01/08/2023 Medications norethin-e.estra diol triphasic (Edna 28) 0.5/1/0.5-35 mg-mcg tab Edna 28 0.5 mg/1 mg/0.5 mg-35 mcg tablet Active lisinopriL (ZESTRIL) 10 MG tablet TAKE 1 TABLET BY MOUTH EVERY DAY 12/21/2022 Active Social History Tobacco Use Types Packs/Day Years Used Date Smoking Tobacco: Never Smokeless Tobacco: Never Tobacco Cessation:Counseling Given: Not Answered Comments No Sex and Gender Information Value Date Recorded Sex Assigned at Not on file Legal Sex Female 8:32 AM EST Gender Identity Not on file Sexual Orientation Not on file Last Filed Vital Signs Vital Sign Reading Time Taken Comments Blood Pressure 120/80 01/08/2023 9:51 AM EST Pulse 92 01/08/2023 9:51 AM EST Temperature 36.8 ??C (98.3 ??F) 01/08/2023 9:51 AM ES T Respiratory Rate 14 01/08/2023 9:51 AM EST Oxygen Saturation 98% 01/08/2023 9:51 AM EST Inhaled Oxygen Concentration - - Weight 61.9 kg (136 lb 6.4 oz) 01/08/2023 9:51 A M EST Height 162.6 cm (5' 4 ) 01/08/2023 9:51 AM EST Body Mass Index 23.41 01/08/2023 9:51 AM EST Plan of Treatment Health Maintenance Due Date Last Done Comments Colorectal Cancer: COLONOSCO PY Screening every 10 yrs (or Modifier) 1969 Depression: Screening Annual ly using PHQ-2/9 in Adults 18 yrs or above (or HM Modifier)([facility]) 1969 Hepatitis C Virus Infection in Adolescents and Adults: Screening (or Modifier) ([facility]) 1987 [facility] Screening Reminder: Nona hernandez for all adults ([facility]) 1987 Tobacco Smoking Cessation: i n Adults excluding Women: Behavioral and Pharmacotherapy Interventions ([facility]) 1987 Cervical Cancer Screenin 1-65 yrs of age (or Modifier) 1990 Cervical Cancer Screening: P ap every 3 yrs pts age 21-65 1990 Cervical Cancer: Pap Screeni ng with Modifier timing ([facility]) 1990 Cervical Cancer: hrHPV alone or with cotesting Pap for Pts 30-65yrs screening every 5yrs ([facility]) 1990 Colorectal Cancer Screening 45 -75 Yrs (or HM Modifier) 2014 Colorectal Cancer: FLEXIBLE SIGMOIDOSCOPY Screening every 5 yrs 2014 Colorectal Cancer: Fecal Immunochemical Test (FIT) Annually [facility] 2014 Colorectal Cancer: High-sens itivity gFOBT Screening Annually [facility] 2014 Colorectal Cancer: Stool Col oguard Screening every 3 yrs 2014 Colorectal Cancer:CT Colonog pawan Screening every 5 yrs 2014 Lipid Screening: Every 5 yrs for Women aged 45+ (or HM Modifier) ([facility]) 2015 Breast Cancer: Screening Nona hernandez age 50-74 yrs (or HM Modifier)([facility]) 2019 Pneumococcal Vaccination Scr eening: Patients 50+ yrs of age ([facility]) (1 of 1 - PCV) 2019 Zoster/Shingles Vaccine Seri es Screening: Adults aged 18+ yrs (or HM Modifiers)([facility]) (1 of 2) 2019 COVID-19 Vaccine Screening: Initial Series and Booster Status ([facility]) ( - 2023- season) 2024 11/22/2021, 04/05/2021, 03/15/2021 Flu Vaccination: Yearly for ages 18mos through 64 years (or Modifier)([facility]) 06/25/2025 DTaP/Tdap/Td Vaccines ([facility]) (2 - Td or Tdap) 04/02/2029 04/02/2019 Medical Devices Not on file Insurance [facility] Care Teams Purchase Order Checker Relationship Specialty Start Date End Date Pcp, No PCP - General Family Medicine 01/08/23
--- OUTSIDE RECORDS SUMMARY | 2025-03-09 07:50 | XMS_ITS | Clinical Summary ---
Author Organization [facility] Address [address] [place] [address] Care Team Providers Care Litigation Assistant Name Role Phone Mio Pascual Primary Care Provider [phone] Allergies Active Allergy Reactions Criticality Noted Date [...] 75+ series) 2044 Procedures * Due to [place] Dizmo law, this organization might not be sharing negative HIV tests. Procedure Name Priority Date/Time Associated Diagnosis Comments AUDIE BILATERAL SCREENING DIGITAL MAMMOGRAM WITH AGUSTIN Routine 01/09/2024 1:34 PM EST Encounter for screening mammogram for breast cancer from Last 3 Months or Most Recently Relevant to Health Maintenance Results * Due to [place] law, this organization might not be sharing [...] to Health Maintenance Insurance [employer] Care Teams Litigation Assistant Relationship Specialty Start Date End Date Mio Pascual [address] [place] [address] PCP - General Internal Medicine 11/08/23
--- OUTSIDE RECORDS SUMMARY | 2025-03-09 07:50 | XMS_ITS | Clinical Summary ---
Author Organization [facility] Address [address] [place] [address] Phone Care Team Providers Care Estate Tax Examiner Name Role Phone Mio Pascual Primary Care Provider [phone] Allergies Active Allergy Reactions Criticality Noted Date Comments Formaldehyde Analogues Rash Low 01/08/2023 Medications Medication Sig Dispensed Refills Start Date End Date Status lisinopril (PRINIVIL,ZESTRIL) 10 MG tablet Take 10 mg by mouth daily. 12/21/2022 Active ascorbic acid, vitamin C, (VITAMIN C) 1000 MG tablet Vitamin C 1,000 mg tablet Take by oral route. Active cholecalciferol, vitamin D3, 25 mcg (1,000 unit) capsule Vitamin D3 25 mcg (1,000 unit) capsule Take by oral route. Active cyanocobalamin, vitamin B-12, 100 MCG tablet Vitamin B12 daily Active norethindrone-ethinyl estradiol triphasic (ARANELLE, 28,) 0.5/1/0.5-0.035 mg Tab Aranelle (28) 0.5 mg/1 mg/0.5 mg-35 mcg tablet Active Social History Tobacco Use Types Packs/Day Years Used Date Smoking Tobacco: Never Smokeless Tobacco: Never Tobacco Cessation:Counseling Given: Not Answered Education Answer Date Recorded Are you interested in more education? Not on helene e 03/22/2023 Are you concerned about learning? Not on file 03/22/2023 No 03/22/2023 No 03/22/2023 Digital Access Answer Date Recorded No 04/20/2023 No 04/20/2023 No 04/20/2023 Reliable internet access at home? Not on file 04/20/2023 Device with a working camera? Not on file Sex and Gender Information Value Date Recorded Sex Assigned at Not on file Gender Identity Not on file Sexual Orientation Not on file Last Filed Vital Signs Vital Sign Reading Time Taken Comments Blood Pressure 126/72 02/27/2023 11:01 AM EDT Pulse 100 02/27/2023 11:01 AM EDT Temperature 36.9 ??C (98.5 ??F) 02/27/2023 11:01 AM E DT Respiratory Rate - - Oxygen Saturation 99% 02/27/2023 11:01 AM EDT Inhaled Oxygen Concentration - - Weight 62.1 kg (137 lb) 02/27/2023 11:01 AM EDT Height - - Body Mass Index - - Plan of Treatment Health Maintenance Due Date Last Done Comments LIPID PANEL 1969 DEPRESSION SCREENING 1981 HEPATITIS C SCREENING 1987 HIV ONE-TIME SCREENING (18-6 5 YEARS) 1987 PAP SMEAR 1990 MAMMOGRAM 2009 COLOGUARD 2014 COLONOSCOPY 2014 COLORECTAL CANCER SCREENING 2014 FIT TEST 2014 FOBT 2014 SIGMOIDOSCOPY 2014 VIRTUAL COLONOSCOPY 2014 PNEUMOCOCCAL VACCINES (50+ years) (1 of 1 - PCV) 2019 ZOSTER VACCINES (1 of 2) 2019 CREATININE LEVEL 12/16/2020 12/16/2019 POTASSIUM LEVEL 12/16/2020 12/16/2019 COVID-19 VACCINE (4 - 2023-2 5 season) 2024 11/22/2021, 04/05/2021, 03/15/2021 Adult Td,Tdap Booster 04/02/2029 04/02/2019 SMOKING STATUS SCREENING (On ce After 26 Yrs) Completed 02/27/2023 HEPATITIS A VACCINES Aged Out No long er eligible based on patient's age to complete this topic HIB VACCINES Aged Out No longer eligi ble based on patient's age to complete this topic MENINGOCOCCAL VACCINES (ACWY) Aged Out No longer eligible based on patient's age to complete this topic Medical Devices Not on file Procedures Procedure Name Priority Date/Time Associated Diagnosis Comments COMPREHENSIVE METABOLIC PANEL Routine 12/16/2019 3:24 PM EST Fatigue, unspecified type from Last 3 Months or Most Recently Relevant to Health Maintenance Results * Comprehensive metabolic panel (12/16/2019 3:24 PM EST) SODIUM 136 133 - 146 mmol/L [facility] POTASSIUM 3.7 3.3 - 5.1 mmol/L [facility] CHLORIDE 99 96 - 108 mmol/L [facility] CO2 26 21 - 35 mmol/L [facility] BUN 11 6 - 19 mg/dL [facility] CREATININE 0.70 0.5 - 1.5 mg/dL [facility] GLUCOSE 94 70 - 99 mg/dL [facility] ALBUMIN 4.1 3.9 - 4.8 g/dL [facility] TOTAL PROTEIN 7.1 6.5 - 8.0 g/dL [facility] CALCIUM 9.0 8.4 - 10.3 mg/dL [facility] ALKALINE PHOSPHATASE 48 39 - 117 U/L [facility] TOTAL BILIRUBIN 0.3 0.0 - 1.2 mg/dL [facility] AST 18 0 - 37 U/L [facility] ALT 10 0 - 40 U/L [facility] GLOBULIN 3.0 1 - 4.8 g/dL [facility] EGFR 101 >59 mL/min/1.7 3m2 [facility] Comment:If patient is black, multiply result by 1.159. Estimated glomerular filtration rate calculated using the CKD-EPI equation. ANION GAP 15 10 - 20 mmol/L [facility] Blood 12/16/2019 3:24 PM EST 12/16/2019 3:28 PM EST Mahamed Kramer DO LAB BLOOD ORDERABLES [facility] [address] [place] [address] from Last 3 Months or Most Recently Relevant to Health Maintenance Care Teams Estate Tax Examiner Relationship Specialty Start Date End Date Mio Pascual DO [email or web address] PCP - General Internal Medicine 12/16/19 Additional Source Comments The information contained in this document represents components of the legal health record. It is not the complete legal health record.[facility]
--- OUTSIDE RECORDS SUMMARY | 2025-03-09 07:50 | XMS_ITS | Referral Summary ---
Author Organization [facility] Address [address] [place] [address] Care Team Providers Care Pan Cleaner Name Role Phone Mio Pascual Primary Care Provider [phone] Allergies Active Allergy Reactions Criticality Noted Date [...] Not on file Procedures * Due to [place] state law, this organization might not be sharing negative HIV tests. Procedure Name Priority Date/Time Associated Diagnosis Comments AUDIE BILATERAL SCREENING DIGITAL MAMMOGRAM WITH AGUSTIN Routine 01/09/2024 1:34 PM EST Encounter for screening mammogram for breast cancer from Last 3 Months or Most Recently Relevant to Health Maintenance Results * Due to [place] state law, this organization might not be [...] to Health Maintenance Insurance [employer] Care Teams Pan Cleaner Relationship Specialty Start Date End Date Mio Pascual [address] [place] [id number] PCP - General Internal Medicine 11/08/23
[2025-03-09 07:56] LABS: MANUAL DIFF FLAG NO
[2025-03-09 08:17] LABS: Basophils Percent Auto 0.8 % (0-2); Eosinophils Absolute Auto 0.1 X10*3/uL (0.0-0.4); Eosinophils Percent Auto 1.5 % (0-4); Hematocrit 38.1 % (37.0-47.0); Hemoglobin 13.1 g/dl (12.0-16.0); Imm Gran Abs Auto 0.01 X10*3/uL (0.00-0.03); Imm Gran Pct Auto 0.2 % (0.0-0.4); Lymphocytes Absolute Auto 1.7 X10*3/uL (1.2-4.9); Lymphocytes Percent Auto 31.9 % (20-40); Mean Corpuscular HGB Conc 34.4 g/dl (31.0-35.0); Mean Corpuscular Hemoglobin 31.6 pg (27.0-33.0); Mean Platelet Volume 10.5 fL (9.4-12.3); Monocytes Absolute Auto 0.5 X10*3/uL (0.1-1.2); Neutrophils Absolute Auto 2.9 x10*3/uL (2.0-8.3); Neutrophils Percent Auto 55.6 % (45-73); Platelet Count 215 X10*3/uL (160-400); Red Blood Count 4.14 X10*6/uL (4.20-5.50); Red Cell Distribution Width 12.7 % (11.0-16.0); White Blood Count 5.2 X10*3/uL (4.8-10.8)
[2025-03-09 08:49] LABS: Alanine Aminotransferase 11 U/L (0-31); Albumin Level 4.3 g/dL (3.5-5.0); Alkaline Phosphatase 74 U/L (39-117); Anion Gap 9 (12-20); Aspartate Amino Transferase 24 U/L (5-31); Bilirubin Total 0.7 mg/dL (0.0-1.0); Blood Urea Nitrogen 16 mg/dL (9-16); Calcium 9.4 mg/dL (8.4-10.2); Carbon Dioxide 28 mmol/L (22-29); Chloride 107 mmol/L (96-108); Cholesterol 186 mg/dL (<200); Estimated Glomerular Filt Rate > 60; Glucose Random 88 mg/dL (60-115); HDL Cholesterol 56 mg/dL (>40); LDL Cholesterol Calculated 114 mg/dL (<100); Potassium 4.3 mmol/L (3.3-5.1); Sodium 140 mmol/L (135-145); Total Protein 6.9 g/dL (6.5-8.0); Triglycerides 84 mg/dL (<150)
== END 2025-03-09 07:47 | disposition home or self-care (01) ==
LOC: HO.LAB 07:46
PROVIDERS: PCP Internal Medicine; Visit Provider Internal Medicine
DX: I10 Essential (primary) hypertension (principal)
CPT/HCPCS: 36415; 80053; 80061; 85025

== ENCOUNTER 2025-03-30 15:24 | Outpatient (REF) | payer OTHER, SELFPAY ==
--- NOTE | ~2025-03-30 | XR_ITS ---
EXAMINATION: XR HIP, RIGHT CLINICAL INFORMATION: PAIN IN RIGHT HIP COMPARISON: None available. TECHNIQUE: Two views of the right hip. FINDINGS: No acute cortical disruption or malalignment. No lytic or blastic lesions. No joint space narrowing. Sclerosis and the right sacroiliac joint. Degenerative changes in the symphysis pubis. Focal calcification overlapping the right hemisacrum. Probable small bony island right suprapubic/right superior pubic ramus. XR/XR hip RT w [id number] IMPRESSION: No acute fracture or dislocation. Electronically signed by: Kennedy Owen MD 03/30/2025 03:48 PM EDT
--- OUTSIDE RECORDS SUMMARY | 2025-03-30 16:36 | XMS_ITS | Continuity of Care Document ---
Author Organization [facility], [facility] Address [address] [place] [address] Assessment Encounter Date Assessment Date Assessment LastModified by Organization Details LastModified Time 03/30/2025 03/30/2025 [id number] [place] [id number] (PINMAKER) MDM MODERATE MUST MEET 2 OUT OF [...] EACH ELEMENT THAT IS COVERED Not available 03/30/2025 14:40:36 Plan of Treatment Reminders Order Date Submit Date Provider Last Modified By Organization Details Last Modified Time Details Appointments FOLLOW UP 15 2024 02:30P M DR BRIDGES Not available Not available Not available Lab None recorded. Referral None recorded. Procedures None recorded. Surgeries None recorded. Imaging XR, hip + pelvis, unilatera l, 2 or 3 view 2024 025 [facility] (Imaging), [address] [place] [address], [id number], 03/30/2025 15:52:22 MRI, lumbar spine, w/o contrast 2024 025 [email or web address] [facility] (Imaging), [address] [place], [address], 03/30/2025 15:08:16 Medication Orders None recorded. Patient TargetsNo targets recorded. Patient Instructions Encounter Date Encounter Id Patient Instructions Last Modified By Organization Details Last Modified Time 03/30/2025 [id number] hip pain: care instructions Not available 03/30/2025 14:48:24 Reason for Referral None Reported. Results Created Date Observation Date Name Description Value Unit Range Abnormal Flag Note LastModifiedBy Organization Detail LastModifiedTime 03/09/20 25 03/08/2025 XR, lumbo sacra l spine , 2 or 3 view No observ ation record ed. [facility] (Medical Records) [address] [place], [address], 03/22/2025 22:27:02 03/30/20 25 03/30/2025 XR, hip + pelvi s, unila teral , 2 or 3 view No observ ation record ed. [facility] (Medical Records) [address] [place], [address], 03/30/2025 15:52:22 Result Notes None recorded. Problems Name Problem SNOMED Code Status Onset Date Resolution Date Notes Provider Name and Address Organization Details Recorded Time Essscooby l hyperten davy 25833738 Active 2021 Not Available [facility] 3 12:51:59 Menorrha arslan 604757402 Completed 202205/15/2023 Removal Reason: surgery Mio Bridges, DO [address] [place], [address], [facility] 3 14:41:25 Uterine leiomyom a 07701894 Completed 202205/15/2023 Removal Reason: surgery Mio Bridges, DO [address] [place], [address], [facility] 3 14:49:46 Mass of uterus 0182604907 43432 Completed 202205/15/2023 Mio Bridges, DO [address] [place] [address], [address], [facility] 3 14:41:30 Volvulus of colon 4776293 Active 2022 Not Available [facility] 3 12:51:59 Uterine leiomyom a 25490726 Active 2022 Not Available [facility] 3 12:51:59 Irregula r blood group antibody detected 517658021 Active 2022 Not Available [facility] 3 12:51:58 Paresthe emani of upper limb 80237821 Active 2023 Mio Bridges, DO [address] [place] [address], [address], [facility] 4 09:26:06 Carpal tunnel syndrome 53998158 Active 2023 Mio Bridges, DO [address] [place] [address], [address], [facility] 4 09:26:52 Amenorrh ea 32242167 Active 2023 Mio Bridges, DO [address] [place] [address], [address], [facility] 4 11:50:47 Menopaus e Active 2023 Mio Bridges, DO [address] [place] [address], [address], [facility] 4 12:14:25 Menopaus e present 723512924 Active 2023 Mio Bridges DO [address] [place] [address], [address], [facility] 4 22:40:55 Low back pain 443631186 Active 2024 Mio Bridges DO [address] [place] [address], [address], [facility] 5 11:12:57 Muscle weakness of limb 482500128 Active 2024 Mio Valera Ankur, [address] [place] [address], [address], [facility] 5 22:27:35 Cobalami n deficien cy 749152650 Active 2024 Mio Valera Ankur, [address] [place] [address], [address], [facility] 5 22:27:47 Chronic low back pain 834857310 Active 2024 Mio Valera DO Ankur [address] [place] [address], [address], [facility] Internal [facility] 5 14:41:09 Pain of hip region 27447029 Active 2024 Mio Moraima DO Ankur [address] [place] [address], [address], [facility] 5 14:47:01 Weakness of right lower limb Active 2024 Mio Valera DO Ankur [address] [place] [address], [address], [facility] 5 14:51:15 Varicose veins of lower extremit y 21206396 Active 2017 Not Available [facility] 3 12:51:59 Problem Notes None recorded. Procedures Surgical History Date Name Laterality Status Provider Name and Address Organization Details Recorded Time 4 Colonoscopy completed Carolee Rosado [facility] 09/21/2024 11:33:46 Imaging Results None recorded. Procedure Notes None recorded. Medical Equipment None Reported. Allergies Allergen ID Allergen Name Allergen Category Reaction Reaction Severity Criticality Documentation Date Start Date Code Code System Note Provider Name and Address Organization Details Recorded Time 6224 [facility]me nt,medica tion Not available Not available Not available 11/05/2022 4530 RxNorm hair will break off/s evere sun burn, swell ing Sofie benitez [facility] 2 13:51:51 Medications Name Sig [...] Available Not Available neomycin/ polymyxin /dexameth asone 3.5-51384 -0.1 susp 12/23 completed Not Available Not [...] DRINK ONCE DAILY NEEDED FOR CONSTIPA TION 06/21 /2023 completed Not Available Not Available Not Available [...] and Address Organization Details Last Updated DateTime 5 163.83 cm 24.3 kg/m2 45599.3 g 78 /min 97 % 97 % 124 mm[Hg] 78 mm[Hg] [facility] 14:21:46 Social History Question Answer Notes LastModified by Organizat ion Details LastModified Time Tobacco Smoking Status Never Smoker Not Available [facility] 09/27/2020 03:36:23 What Was The Date Of Your Most Recent Tobacco Screening? 03/30/2025 [email or web address] Information not available 03/30/2025 How Much Tobacco Do You Smoke? No [id number] Information not available 09/27/2020 Do You Or Have You Ever Used Any Other Forms Of Tobacco Or Nicotine? No [email or web address] Information not available 12/24/2023 Sex: Female Functional [...] available 11/26 11:59:58 Mother Polyp of colon Not available 2024 08:13:27 Sister Polyp of colon [email or web address] Not available 2024 08:13:27 Medical History No medical history recorded. Gynecological History Statement/Question Response Date of LMP 02/19/2018 Obstetrics History GPAL:G 0 P 0 0 0 0 Immunizations Vaccine Type Date Status Note Provider Nam e and Address Organization Details Recorded Time COVID-19, mRNA, LNP-S, PF, 30 mcg/0.3 mL dose 03/15/2021 completed Gloria Gencarelle eli [facility] 12/24/2023 08:55:23 COVID-19, mRNA, LNP-S, PF, 30 mcg/0.3 mL dose 04/05/2021 completed Gloria Gencarelle eli [facility] 12/24/2023 08:55:23 COVID-19, mRNA, LNP-S, PF, 30 mcg/0.3 mL dose 11/22/2021 completed Gloria Gencarelle [facility] 12/24/2023 08:55:23 Tdap 04/02/2019 completed Not Available [facility] 11/08/2023 12:51:59 Past Encounters Encounter ID Performer Location Encounter Start Date Encounter Closed Date Diagnosis/Indication Diagnosis SNOMED-CT Code Diagnosis ICD10 Code Diagnosis Note [id number] [facility] [address] [address] 03/08/2025 08:13:11 03/08/2025 11:57:00 Essential hypertension 46691618 I10 losartan is doing greathome readings are doing good Menopause 303813112 N95. 1 doing great with hormonal therapy Depression screening 171 354716 Z13.31 negative Low back pain 721389266 M54.50 seems to be worsening without a injury [id number] Mio Bridges [facility] [address] [facility] [place] [address] 03/30/2025 14:04:03 03/30/2025 15:08:16 Essential hypertension 18505354 I10 losartan is doing greathome readings are doing good Depression screening 171 254439 Z13.31 negative Chronic low back pain 27 7103727 M54.41 G89.29 seems to be worsening without a injuryneed s an mri Pain of hip region 95210 002 M25.551 Weakness o f right lower limb 8048755331 49443 R29.898 Health Concerns Section Related Observation LastModified by Organization Detai ls LastModified Time None Recorded Concern Status LastModified by Organization Details LastModified Time None Recorded Payers Encounter Date Sequence Insurance Name Policy Number Policy Scherer Covered Member ID Scherer Member ID Guarantor Name 03/30/2025 1 [facility] [employer] - DIRECT CONNECTORCARE TYPE I (HMO) [id number] Corin Swann [id number] Corin Swann Notes Date Note Type Note Provider Name and Address Organization Details Recorded Time 5 text/htm l Care Management - HypertensionReported bypatient.Self Care:not under emotional stress Severity:symptoms are improving; does not interfere with daily activities Associated Symptoms:no dizziness; no lightheadedness; no chest pain; no shortness of breath; no palpitations; no edema; no calf muscle cramps; no blurred vision; no confusion; no headaches; no fatigue pneum vax Mio Bridges, DO [address] [place], [address], [facility] 03/30/2025 15:00:43 OBGyn Episode No OBEpisode recorded.
--- OUTSIDE RECORDS SUMMARY | 2025-03-30 16:36 | XMS_ITS | Data Portability ---
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 INTERN) [facility] MODERATE MUST MEET 2 OUT OF 3 [...] COVERED Not available 08/07/2024 12:12:54 03/08/2025 03/08/2025 [id number] [place] [address] (DIGITAL MARKETING INTERN) MDM MODERATE MUST MEET 2 OUT OF [...] THAT IS COVERED Not available 03/08/2025 11:15:06 03/30/2025 03/30/2025 [address] [place] [address] (DIGITAL MARKETING INTERN) MDM MODERATE MUST MEET 2 OUT OF [...] Lab CMP, serum or plasma 2024 025 [facility], [address] [place] [address], [address], 03/10/2025 12:14:31 CBC 2024 025 [facility], [address] [place] [address], [address], 03/08/2025 11:24:52 lipid panel, blood 2024 025 [facility], [address] [place] [address], [address], 03/08/2025 11:24:52 vitamin B12, serum 2023 024 [facility], [address] [place] [address], [address], 04/22/2024 11:17:07 lh + FSH, serum 2023 024 [facility], [address] [place] [address], [address], 02/20/2024 11:15:04 noninvasi ve colorecta l cancer DNA + occult blood screening , QL, stool 2023 024 [facility], [address] [place] [address], [address], 03/17/2024 22:09:10 Referral None recorded. Procedures None recorded. Surgeries None recorded. Imaging XR, hip + pelvis, unilatera l, 2 or 3 view 2024 025 [facility] (Imaging), [address] [place], [address], 03/30/2025 15:52:22 MRI, lumbar spine, w/o contrast 2024 025 [facility] (Imaging), [address] [place], [address], 03/30/2025 15:08:16 XR, lumbosacr al spine, 2 or 3 view 2024 025 [facility] (Imaging), [address] [place], [address], 03/09/2025 08:01:09 Medication Orders estradiol 0.05 mg/24 hr semiweekl y transderm al patch 2023 024 [facility] #[id number], [address] [place], [address], 08/07/2024 12:16:22 losartan 50 mg tablet 2023 024 [facility] #[id number], [address] [place], [address], 02/19/2024 11:41:09 Patient TargetsNo targets recorded. Patient Instructions Encounter Date Encounter Id Patient Instructions Last Modified By Organization Details Last Modified Time 02/19/2024 [id number] secondary amenorrhea: care instructions Not available 02/19/2024 11:50:59 04/21/2024 [id number] carpal tunnel syndrome: care instructions Not available 04/21/2024 14:14:55 carpal tunnel syndrome: exercises Not available 04/21/2024 14:14:55 secondary amenorrhea: care instructions Not available 04/21/2024 14:14:54 08/07/2024 [id number] secondary amenorrhea: care instructions Not available 08/07/2024 12:16:20 03/08/2025 [id number] back care and preventing injuries: care instructions Not available 03/08/2025 11:14:50 getting back to normal after low back pain: care instructions Not available 03/08/2025 11:14:50 learning about relief for back pain Not available 03/08/2025 11:14:49 03/30/2025 [id number] hip pain: care instructions Not available 03/30/2025 14:48:24 Reason for Referral None Reported. Results Created Date Observation Date Name Description Value Unit Range Abnormal Flag Note LastModifiedBy Organization Detail LastModifiedTime 01/29/20 25 01/13/2025 MAMMO , scree blanquita, digit al, bilat eral No observ ation record ed. [facility] [address] [place], [address], 01/28/2025 14:25:12 03/09/20 25 03/08/2025 XR, lumbo sacra l spine , 2 or 3 view No observ ation record ed. [facility] (Medical Records) [address] [place], [address], 03/22/2025 22:27:02 03/30/20 25 03/30/2025 XR, hip + pelvi s, unila teral , 2 or 3 view No observ ation record ed. [facility] (Medical Records) [address] [place], [address], 03/30/2025 15:52:22 Result Notes None recorded. Problems Name Problem SNOMED Code Status Onset Date Resolution Date Notes Provider Name and Address Organization Details Recorded Time Jay Jayscooby cristine funes davy 23449950 Active 2021 Not Available [facility] 12:51:59 Menrolly mcdaniels 295061929 Completed 202205/15/2023 Removal Reason: surgery Mio Bridges, DO [address] [place], [address], [facility] 06/21/202 3 14:41:25 Uterine leiomyom a 05904829 Completed 202205/15/2023 Removal Reason: surgery Mio Bridges, DO [address] [place] [address], [address], [facility] 3 14:49:46 Mass of uterus 1687612364 31709 Completed 202205/15/2023 Mio Bridges, DO [address] [place] [address], [address], [facility] 3 14:41:30 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 Not Available [facility] 3 12:51:59 Uterine leiomyom a 16790381 Active 2022 Not Available [facility] 3 12:51:59 Irregula r blood group antibody detected 053821073 Active 2022 Not Available [facility] 3 12:51:58 Paresthe emani of upper limb 98342709 Active 2023 Mio Bridges, DO [address] [place] [address], [address], [facility] 4 09:26:06 Carpal tunnel syndrome 77787841 Active 2023 Mio Bridges, DO [address] [place] [address], [address], [facility] 4 09:26:52 Amenorrh ea 41192196 Active 2023 Mio Bridges, DO [address] [place] [address], [address], [facility] 4 11:50:47 Menopaus e Active 2023 Mio Bridges, DO [address] [place] [address], [address], [facility] 4 12:14:25 Menopaus e present 303825828 Active 2023 Mio Bridges, DO [address] [place] [address], [address], [facility] 4 22:40:55 Low back pain 323027992 Active 2024 Mio Valera Ankur, DO [address] [place] [address], [address], [facility] 5 11:12:57 Muscle weakness of limb 557777121 Active 2024 Mio Valera Ankur, DO [address] [place] [address], [address], [facility] 5 22:27:35 Cobalami n deficien cy 215209699 Active 2024 Mio Valera Ankur, DO [address] [place] [address], [address], [facility] 5 22:27:47 Chronic low back pain 007775882 Active 2024 Mio Bridges, DO [address] [place] [address], [address], [facility] 5 14:41:09 Pain of hip region 15093561 Active 2024 Mio Bridges DO [address] [place] [address], [address], [facility] 5 14:47:01 Weakness of right lower limb Active 2024 Mio Bridges, DO [address] [place] [address], [address], [facility] 5 14:51:15 Varicose veins of lower extremit y 87663791 Active 2017 Not Available [facility] 3 12:51:59 Problem Notes None recorded. Procedures Surgical History Date Name Laterality Status Provider Name and Address Organization Details Recorded Time 4 Colonoscopy completed Carolee Rosado [facility] 09/21/2024 11:33:46 Imaging Results Imaging Date Name Status LastModified by Organiz ation Details LastModified Time 01/13/2025 MAMMO, screening, digital, bilateral completed [facility] [address], [place], [address], 01/28/2025 14:25:12 03/08/2025 XR, lumbosacral spine, 2 or 3 view completed [email or web address] [facility] (Medical Records) [address] [place], [address], 03/22/2025 22:27:02 03/30/2025 XR, hip + pelvis, unilateral, 2 or 3 view active [facility] (Medical Records) [address] [place], [address], 03/30/2025 15:52:22 Procedure Notes None recorded. Medical Equipment None Reported. Allergies Allergen ID Allergen Name Allergen Category Reaction Reaction Severity Criticality Documentation Date Start Date Code Code System Note Provider Name and Address Organization Details Recorded Time 6227 [facility],med[facility] tion Not available Not available Not available 11/05/2022 4530 RxNorm hair will break off/s evere sun burn, swell ing Sofie benitez MA [facility] 13:51:51 Medications Name Sig Start Date Stop [...] Available Not Available neomycin/ polymyxin /dexameth asone 3.5-49931 -0.1 susp 12/23 completed Not Available Not [...] Updated DateTime 4 163.2 cm 24.2 kg/m2 80897.1 9 g 93 /min 99 % 99 % 122 mm[Hg] 80 mm[Hg] [facility] 4 11:19:20 Date Recorded Body height Body mass index (BMI) Body weight Heart rate Respiratory rate Oxygen saturation Oxygen saturation in Arterial blood by Pulse oximetry Systolic blood pressure Diastolic blood pressure Provider Name and Address Organization Details Last Updated DateTime 4 163.83 cm 24.5 kg/m2 92469.5 3 g 78 /min 16 /min 98 % 98 % 140 mm[Hg] 80 mm[Hg] Alphonse Hendrix [facility] 4 13:54:54 Date Recorded Body height Body mass index (BMI) Body weight Heart rate Oxygen saturation Oxygen saturation in Arterial blood by Pulse oximetry Systolic blood pressure Diastolic blood pressure Provider Name and Address Organization Details Last Updated DateTime 4 163.83 cm 24.3 kg/m2 22350.3 g 80 /min 98 % 98 % 130 mm[Hg] 80 mm[Hg] Oanhlesa Dickersonmond [facility] 4 11:38:46 Date Recorded Body height Body mass index (BMI) Body weight Heart rate Oxygen saturation Oxygen saturation in Arterial blood by Pulse oximetry Systolic blood pressure Diastolic blood pressure Provider Name and Address Organization Details Last Updated DateTime 5 163.83 cm 24.3 kg/m2 79256.3 g 78 /min 97 % 97 % 124 mm[Hg] 78 mm[Hg] Oanh Patterson [facility] 5 14:21:46 Social History Question Answer Notes LastModified by WALTOP ion Details LastModified Time Tobacco Smoking Status Never Smoker Not Available [facility] 09/27/2020 03:36:23 What Was The Date Of Your Most Recent Tobacco Screening? 03/30/2025 [email or web address] Information not available 03/30/2025 How Much Tobacco Do You Smoke? No [id number] Information not available 09/27/2020 Do You Or Have You Ever Used Any Other Forms Of Tobacco Or Nicotine? No [email or web address] Information not available 12/24/2023 Sex: Female Functional [...] available 11/26 11:59:58 Mother Polyp of colon [email or web address] Not available 2024 08:13:27 Sister Polyp of colon Not available 2024 08:13:27 Medical History No medical history recorded. Gynecological History Statement/Question Response Date of LMP 02/19/2018 Obstetrics History GPAL:G 0 P 0 0 0 0 Immunizations Vaccine Type Date Status Note Provider Nam e and Address Organization Details Recorded Time COVID-19, mRNA, LNP-S, PF, 30 mcg/0.3 mL dose 03/15/2021 completed Gloria Gencarelle eli [facility] 12/24/2023 08:55:23 COVID-19, mRNA, LNP-S, PF, 30 mcg/0.3 mL dose 04/05/2021 completed Gloria Gencarelle eli [facility] 12/24/2023 08:55:23 COVID-19, mRNA, LNP-S, PF, 30 mcg/0.3 mL dose 11/22/2021 completed Gloria Gencarelle [facility] 12/24/2023 08:55:23 Tdap 04/02/2019 completed Not Available [facility] 11/08/2023 12:51:59 Past Encounters Encounter ID Performer Location Encounter Start Date Encounter Closed Date Diagnosis/Indication Diagnosis SNOMED-CT Code Diagnosis ICD10 Code Diagnosis Note [id number] [facility] [address] [facility],[place] [address] 02/28/2018 13:46:48 02/28/2018 14:49:51 Adult health examination 976274379 Z00.00 Active or passive immunization 131714013 Z23 Varicose v eins of lower extremity 67090770 I83.[id number] [facility] [address] [facility],[place] [address] 04/16/2018 14:29:26 04/16/2018 16:21:07 Tick bite 96141789 S20.96XA will chk for lyme Varicose v eins of lower extremity 18751574 I83.893 will refer to another dr and have her seen by vascular from another practice [id number] [facility] [address] [facility], [place] [address] 10/14/2018 10:24:13 10/14/2018 16:45:32 On examination - rash present 817622806 R21 [id number] [facility] [address] [facility], [place] [address] 03/17/2019 11:33:52 03/17/2019 14:26:03 Adult health examination 720381676 Z00.01 Active or passive immunization 703000563 Z23 Screening procedure 2012 5006 Z13.9 Spots on skin 965218014 L98.8 Varicose v eins of lower extremity with inflammation 05024161 I83.[id number] [facility] [address] [facility], [place] [address] 06/17/2019 10:36:18 06/17/2019 11:25:55 Allergic reaction 946244951 T78.40XA avoid topicals on face continue benadryl as needed [id number] [facility] [address] [facility], [place] [address] 12/23/2019 11:14:47 12/23/2019 12:23:15 Abdominal pain 26772300 R10.9 Atypical chest pain 1025 93013 R07.89 very strong cardiac family hx go to ER if pain Diarrhea 54473627 R19.[id number] [facility] [address] [facility] [address] [address], [place] [address] 11/05/2022 13:44:01 11/05/2022 14:34:04 Essential hypertension 30062758 I10 lisinopril once d rechk in [id number] [facility] [address] [facility] [address] [address],[place] [address] [facility] [place] [address] 11/27/2022 10:52:18 11/27/2022 13:42:23 Active or passive immunization 755941487 Z23 utd Adult heal th examination 184419850 Z00.00 long discussion re her pelvic issuesalso her bp is much improved with the new lisinopril med and she feels ok with this Essential hypertension 56310557 I10 lisinopril once and will cont Menorrhagia 296910000 N9 2.0 she will have her get some iron studies [id number] [facility] [address] [facility] [address],[place] [facility] [place] [address] 12/26/2022 11:12:41 12/28/2022 11:26:48 Menorrhagia 089116727 N92.0 she will have her get some iron studies Uterine leiomyoma 021220 05 D25.9 she needs to call bobbin coil winder now as discussed [id number] Mio Bridges DO [facility] [address] [facility] [address] [address],[place] [employer] [address] 02/18/2023 14:36:33 02/18/2023 15:50:55 Mass of uterus 2863264019 84996 N85.8 with ongoing signif bleedinggy n is now not sure if this is the culprit for her pain as they feel its fibroids Volvulus of colon 756168 3 K56.2 she will need to have this eval Essential hypertension 00804105 I10 lisinopril once and will con[place] [id number] [facility] [address] [facility] [address],[place] [employer] [facility] [place] [address] 05/15/2023 14:21:36 05/15/2023 15:06:55 Essential hypertension 35612232 I10 lisinopril 10mg and is well tolerated once and will conthome readings are good cont the current tx Uterine leiomyoma 412806 05 D25.9 removed and is doing a great deal better no more cramping and bleeding is gone Varicose v eins of lower extremity 51626232 I83.893 will refer to another dr and have her seen by vascular from another practice Irregular blood group antibody detected 254173113 R89.4 will neeed to keep this in mind ofor future surgeries etc [id number] Mio Bridges 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 [address] [facility],[place] [address] [facility] [place] [address] 02/19/2024 11:00:47 02/19/2024 13:47:58 Essential hypertension 56857667 I10 lisinopril caused epistaxis we will need to change med to triamteren e/hctz Family his tory of polyp of colon 889839861 Z83.719 Amenorrhea 24358531 N91. [id number] [facility] [address] [facility],[place] [address] 04/21/2024 13:48:33 04/21/2024 14:36:44 Depression screening 788275632 Z13.31 negative Essential hypertension 84211807 I10 losartan is doing great Amenorrhea 65728458 N91. 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 [address] [facility],[place] [address] 08/07/2024 11:18:32 08/07/2024 15:14:04 Essential hypertension 38645536 I10 losartan is doing great Amenorrhea 75393383 N91. 2 she is clearly post menopausal now Menopause 733280901 N95. 1 [id number] Mio Bridges DO [facility] [address] [facility],[place] [address] 03/08/2025 08:13:11 03/08/2025 11:57:00 Essential hypertension 26712886 I10 losartan is doing greathome readings are doing good Menopause 050008519 N95. 1 doing great with hormonal therapy Depression screening 171 495514 Z13.31 negative Low back pain 826580170 M54.50 seems to be worsening without a injury [id number] Mio Bridges DO [facility] [address] [facility],[place] [address] 03/30/2025 14:04:03 03/30/2025 15:08:16 Essential hypertension 79033301 I10 losartan is doing greathome readings are doing good Depression screening 171 055048 Z13.31 negative Chronic low back pain 27 6779688 M54.41 G89.29 seems to be worsening without a injuryneed s an mri Pain of hip region 39851 002 M25.551 Weakness o f right lower limb 0052889795 74788 R29.898 Health Concerns Section Related Observation LastModified by Organization Detai ls LastModified Time None Recorded Concern Status LastModified by Organization Details LastModified Time None Recorded Advance Directives Directive None Recorded Payers Encounter Date Sequence Insurance Name Policy Number Policy Scherer Covered Member ID Scherer Member ID Guarantor Name 02/19/[address] [place] [address] [id number] Corin Swann [id number] Corin Swann 04/21/2024 1 [employer] TYPE I (HMO) [id number] Corin Swann [id number] Corin Swann 08/07/2024 1 [employer] TYPE I (HMO) [id number] Corin Desaie [id number] Corin Swann 03/08/2025 1 [employer] [facility] [employer] TYPE I (HMO) [id number] Corin Swann [id number] Corin Hue 03/30/2025 1 [facility] TYPE I (O) [id number] Corin Swann [id number] Corin Swann Notes Date Note Type Note Provider Name and Address Organization Details Recorded Time 02/19/20 24 text/htm l Care Management - [...] with home readings Mio Bridges DO [address] [place], [address], [facility] 02/19/2024 11:51:18 04/21/20 24 text/htm [...] also of glucosamine Mio Bridges DO [address] [place], [address], [facility] 04/21/2024 14:22:29 08/07/20 24 text/htm l here for rechk of bp pt doing well and relates no issue with medhome bps reviewed and doing fantastic with avg 110 sys and 70's diast taking glucosaminemg+ causing loose bowels etc Mio Bridges DO [address] [facility], [place], [address], [facility] 08/07/2024 12:17:15 03/08/20 25 text/htm [...] worsestanding prolonged times Mio Bridges DO [address] [place], [address], [facility] 03/08/2025 11:21:24 03/30/20 25 text/htm l Care Management - HypertensionReported bypatient.Self Care:not under emotional stress Severity:symptoms are improving; does not interfere with daily activities Associated Symptoms:no dizziness; no lightheadedness; no chest pain; no shortness of breath; no palpitations; no edema; no calf muscle cramps; no blurred vision; no confusion; no headaches; no fatigue pneum vax Mio Bridges DO [address] [place], [address], [facility] 03/30/2025 15:00:43 OBGyn Episode No OBEpisode recorded.
--- OUTSIDE RECORDS SUMMARY | 2025-03-30 16:36 | XMS_ITS | Encounter Summary ---
Author Organization [facility] Address [address] [place] [address] Phone Care Team Providers Care Seed Laboratory Assistant Name Role Phone Ankur Mio Urrutia DO Primary Care Provider [phone] Mio Pascual DO Unavailable Encounter Details Date Type Department Care Team (Latest Contact Info) Description 12/23/2019 Transcribe Orders Virtual Department [address] [place] [address] Miriam Gauthier PA-C [address] [place] [address] Atypical chest pain (Primary Dx) Social History [...] pain documented in this encounter Care Teams Seed Laboratory Assistant Relationship Specialty Start Date End Date Mio Pascual DO PCP - General Internal Medicine 12/16/19 Mio Pascual DO [address] [place] [address] [place] [address] Insurance Assigned Provider 01/29/20 08/31/23 documented as of this encounter Additional Source Comments The information contained in this document represents components of the legal health record. It is not the complete legal health record.[facility]
--- OUTSIDE RECORDS SUMMARY | 2025-03-30 16:37 | XMS_ITS | Data Portability ---
Author Organization [facility] [employer], svmg_admin Address [address] [place] [id number] Care Team Providers Care Ophthalmic Medical Technologist Name Role Phone RAGINI BRIDGES Primary Care Provider Assessment No assessment recorded. Plan of Treatment Reminders Order Date Submit Date Provider Last Modified By Organization Details Last Modified Time Details Appointments None recorded. Lab pap, IG + HPV, cervical 2022 023 SUGEY [facility], [address] [place] [address], [address], 3 18:06:35 test, urine 2021 022 Not available 00:24:54 Referral None recorded. Procedures None recorded. Surgeries hysteroscop y, surgical, with biopsy of endometrium and/or polypectomy (SURG) 2021 022 [email or web address] Not available 09:30:24 hysteroscop y, with endometrial ablation (SURG) 2021 022 SUGEY Not available 14:41:33 Imaging None recorded. Medication Orders Edna 28 0.5 mg/1 mg/0.5 mg-35 mcg tablet 2022 023 [facility], [address], [facility] [address], [place], [id number], 3 16:54:52 Patient TargetsNo targets recorded. 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 I explained nature of [...] 45 min. Not available 08/23/2022 21:26:48 10/24/2022 [id number] uterine fibroids : care instructions Not available 10/25/2022 00:29:13 10/29/2022 [id number] heavy menstrual periods: care instructions Not available [...] urine HCG Results negati ve Not Available [facility] - Alex Shah [address], [place], [address], 10/24/2022 15:43:24 10/25/20 22 10/25/2022 CBC WITH DIFFE RENTI AL/PL ATELE T WBC 5.9 x1000 /uL 3.9-11 .0 Not Available [facility] ([facility]) [address] [facility] [address], [place], [address], 10/25/2022 15:06:51 10/25/20 22 10/25/2022 CBC WITH DIFFE RENTI AL/PL ATELE T RBC 3.88 mil/u L 3.77-5 .28 Not Available [facility] ([facility]) [address] [facility], [place], [address], 10/25/2022 15:06:51 10/25/20 22 10/25/2022 CBC WITH DIFFE RENTI AL/PL ATELE T hemoglobin 11.7 g/dL 11.5-1 5.0 Not Available [facility] ([facility]) [address] [facility], [place], [address], 10/25/2022 15:06:51 10/25/20 22 10/25/2022 CBC WITH DIFFE RENTI AL/PL ATELE T hematocrit 35.2 % 34.0-4 4.0 Not Available [facility] ([facility]) [address] [facility], [place], [address], 10/25/2022 15:06:51 10/25/20 22 10/25/2022 CBC WITH DIFFE RENTI AL/PL ATELE T MCV 91 fL 79-97 Not Available [facility] ([facility]) [address] [facility], [place], [address], 10/25/2022 15:06:51 10/25/20 22 10/25/2022 CBC WITH DIFFE RENTI AL/PL ATELE T MCH 30 pg 27-33 Not Available [facility] ([facility]) [address] [facility], [place], [address], 10/25/2022 15:06:51 10/25/20 22 10/25/2022 CBC WITH DIFFE RENTI AL/PL ATELE T MCHC 33 g/dL 31-36 Not Available [facility] ([facility]) [address] [facility], [place], [address], 10/25/2022 15:06:51 10/25/20 22 10/25/2022 CBC WITH DIFFE RENTI AL/PL ATELE T RDW 13.1 % 11.4-1 4.4 Not Available [facility] ([facility]) [address] [facility], [place], [address], 10/25/2022 15:06:51 10/25/20 22 10/25/2022 CBC WITH DIFFE RENTI AL/PL ATELE T platelets 273 x1000 /uL 150-45 0 Not Available [facility] ([facility]) [address] [facility], [place], [address], 10/25/2022 15:06:51 10/25/20 22 10/25/2022 CBC WITH DIFFE RENTI AL/PL ATELE T neutrophils 66 % Not Available [facility] ([facility]) [address] [place], [address], 10/25/2022 15:06:51 10/25/20 22 10/25/2022 CBC WITH DIFFE RENTI AL/PL ATELE T lymphs 24 % Not Available [facility] ([facility]) [address] [place], [address], 10/25/2022 15:06:51 10/25/20 22 10/25/2022 CBC WITH DIFFE RENTI AL/PL ATELE T monocytes 8 % Not Available [facility] ([facility]) [address] [facility], [place], [address], 10/25/2022 15:06:51 10/25/20 22 10/25/2022 CBC WITH DIFFE RENTI AL/PL ATELE T eos 1 % Not Available [facility] ([facility]) [address] [facility], [place], [address], 10/25/2022 15:06:51 10/25/20 22 10/25/2022 CBC WITH DIFFE RENTI AL/PL ATELE T basos 1 % Not Available [facility] ([facility]) [address] [facility], [place], [address], 10/25/2022 15:06:51 10/25/20 22 10/25/2022 CBC WITH DIFFE RENTI AL/PL ATELE T neutrophils (absolute) 3.9 x1000 /uL 1.8-7. 0 Not Available [facility] ([facility]) [address] [facility], [place], [address], 10/25/2022 15:06:51 10/25/20 22 10/25/2022 CBC WITH DIFFE RENTI AL/PL ATELE T lymphs (absolute) 1.4 x1000 /uL 0.7-4. 5 Not Available [facility] ([facility]) [address] [facility], [place], [address], 10/25/2022 15:06:51 10/25/20 22 10/25/2022 CBC WITH DIFFE RENTI AL/PL ATELE T monocytes(ab solute) 0.5 x1000 /uL 0.1-0. 8 Not Available [facility] ([facility]) [address] [facility], [place], [address], 10/25/2022 15:06:51 10/25/20 22 10/25/2022 CBC WITH DIFFE RENTI AL/PL ATELE T eos (absolute) 0.1 x1000 /uL 0.0-0. 4 Not Available [facility] ([facility]) [address], [place], [address], 10/25/2022 15:06:51 10/25/20 22 10/25/2022 CBC WITH DIFFE RENTI AL/PL ATELE T baso (absolute) 0.1 x1000 /uL 0.0-0. 2 Not Available [facility] ([facility]) [address], [place], [address], 10/25/2022 15:06:51 10/25/20 22 10/25/2022 CBC WITH DIFFE RENTI AL/PL ATELE T hematology comments: NONE Not Available [facility] ([facility]) [address], [place], [address], 10/25/2022 15:06:51 10/25/20 22 10/25/2022 BASIC METAB OLIC PANEL (8) glucose 89 mg/dL 65-99 Not Available [facility] ([facility]) [address], [place], [address], 10/25/2022 15:06:53 10/25/20 22 10/25/2022 BASIC METAB OLIC PANEL (8) BUN 11 mg/dL 5-26 Not Available [facility] ([facility]) [address] [place], [address], 10/25/2022 15:06:53 10/25/20 22 10/25/2022 BASIC METAB OLIC PANEL (8) creatinine 0.84 mg/dL 0.5-1. 5 Not Available [facility] ([facility]) [address] [place], [address], 10/25/2022 15:06:53 10/25/20 22 10/25/2022 BASIC METAB OLIC PANEL (8) eGFR 83.0 mL/mi n > 59 Not Available [facility] ([facility]) [address] [place], [address], 10/25/2022 15:06:53 10/25/20 22 10/25/2022 BASIC METAB OLIC PANEL (8) BUN/creatini ne ratio 13 8-27 Not Available [facility] ([facility]) [address] [facility] [place], [address], 10/25/2022 15:06:53 10/25/20 22 10/25/2022 BASIC METAB OLIC PANEL (8) sodium 139 mEq/L 134-14 4 Not Available [facility] ([facility]) [address] [facility] [place], [address], 10/25/2022 15:06:53 10/25/20 22 10/25/2022 BASIC METAB OLIC PANEL (8) potassium 4.1 mEq/L 3.6-5. 6 Not Available [facility] ([facility]) [address] [place], [address], 10/25/2022 15:06:53 10/25/20 22 10/25/2022 BASIC METAB OLIC PANEL (8) chloride 101 mEq/L 96-109 Not Available [facility] ([facility]) [address] [place], [address], 10/25/2022 15:06:53 10/25/20 22 10/25/2022 BASIC METAB OLIC PANEL (8) carbon dioxide, total 27 mEq/L 20-32 Not Available [facility] ([facility]) [address] [place], [address], 10/25/2022 15:06:53 10/25/20 22 10/25/2022 BASIC METAB OLIC PANEL (8) calcium 9.0 mg/dL 8.7-10 .2 Not Available [facility] ([facility]) [address] [place], [address], 10/25/2022 15:06:53 10/26/20 22 10/26/2022 CBC 5 PART DIFF white blood count 10.3 x1000 /uL 3.9-11 .0 Not Available [facility] [address], [address], 10/26/2022 19:48:12 10/26/20 22 10/26/2022 CBC 5 PART DIFF red blood cell count 4.18 mil/u L 3.70-5 .10 Not Available [facility] [address], [address], 10/26/2022 19:48:12 10/26/20 22 10/26/2022 CBC 5 PART DIFF hemoglobin 12.5 g/dL 11.5-1 5.0 Not Available [facility] [address], [address], 10/26/2022 19:48:12 10/26/20 22 10/26/2022 CBC 5 PART DIFF hematocrit 38.0 % 34.0-4 4.0 Not Available [facility] [address] [place] [address], [address], 10/26/2022 19:48:12 10/26/20 22 10/26/2022 CBC 5 PART DIFF MCV 91 fL 80-100 Not Available [facility] [address] [place] [address], [address], 10/26/2022 19:48:12 10/26/20 22 10/26/2022 CBC 5 PART DIFF MCH 30 pg 27-33 Not Available [facility] [address], [address], 10/26/2022 19:48:12 10/26/20 22 10/26/2022 CBC 5 PART DIFF MCHC 33 g/dL 31-36 Not Available [facility] [address], [address], 10/26/2022 19:48:12 10/26/20 22 10/26/2022 CBC 5 PART DIFF RDW 13.0 % 11.4-1 4.4 Not Available [facility] [address], [address], 10/26/2022 19:48:12 10/26/20 22 10/26/2022 CBC 5 PART DIFF platelet count 250 x1000 /uL 150-45 0 Not Available [facility] [address], [address], 10/26/2022 19:48:12 10/26/20 22 10/26/2022 CBC 5 PART DIFF MPV 11.5 fL 7.0-11 .0 high Not Available [facility] [address], [address], 10/26/2022 19:48:12 10/26/20 22 10/26/2022 CBC 5 PART DIFF neutrophils 94 % Not Available [facility] [address], [address], 10/26/2022 19:48:12 10/26/20 22 10/26/2022 CBC 5 PART DIFF lymphocytes 5 % Not Available [facility] [address], [address], 10/26/2022 19:48:12 10/26/20 22 10/26/2022 CBC 5 PART DIFF monocytes 1 % Not Available [facility] [address], [address], 10/26/2022 19:48:12 10/26/20 22 10/26/2022 CBC 5 PART DIFF eosinophils 0 % Not Available [facility] [address], [address], 10/26/2022 19:48:12 10/26/20 22 10/26/2022 CBC 5 PART DIFF basophils 0 % Not Available [facility] [address], [address], 10/26/2022 19:48:12 10/26/20 22 10/26/2022 CBC 5 PART DIFF neutrophils (#) 9.7 x1000 /uL 1.8-7. 0 high Not Available [facility] [address], [address], 10/26/2022 19:48:12 10/26/20 22 10/26/2022 CBC 5 PART DIFF lymphocytes (#) 0.5 x1000 /uL 0.7-4. 5 low Not Available [facility] [address], [address], 10/26/2022 19:48:12 10/26/20 22 10/26/2022 CBC 5 PART DIFF monocytes (#) 0.1 x1000 /uL 0.1-0. 8 Not Available [facility] [address], [address], 10/26/2022 19:48:12 10/26/20 22 10/26/2022 CBC 5 PART DIFF eosinophils (#) 0.0 x1000 /uL 0.0-0. 4 Not Available [facility] [address], [address], 10/26/2022 19:48:12 10/26/20 22 10/26/2022 CBC 5 PART DIFF basophils (#) 0.0 x1000 /uL 0.0-0. 2 Not Available [facility] [address], [address], 10/26/2022 19:48:12 10/26/20 22 10/26/2022 CBC 5 PART DIFF note Order ing physi brian: Shaunna Cyr Other provi ders: Jesus Webber , Jesus Webber , Jesus Webber , Non Physi brian, , , Not Available [facility] [address], [address], 10/26/2022 19:48:12 10/26/20 22 10/26/2022 BASIC METAB OLIC PANEL glucose 123 mg/dL 65-99 high Not Available [facility] [address], [address], 10/26/2022 19:48:13 10/26/20 22 10/26/2022 BASIC METAB OLIC PANEL BUN 14 mg/dL 5-26 Not Available [facility] [address], [address], 10/26/2022 19:48:13 10/26/20 22 10/26/2022 BASIC METAB OLIC PANEL creatinine 1.36 mg/dL 0.5-1. 5 Not Available [facility] [address], [address], 10/26/2022 19:48:13 10/26/20 22 10/26/2022 BASIC METAB OLIC PANEL BUN/creat ratio 10 8-27 Not Available [facility] [address], [address], 10/26/2022 19:48:13 10/26/20 22 10/26/2022 BASIC METAB OLIC PANEL glom filt rate, est 46.6 mL/mi n > 59 low Not Available [facility] [address], [address], 10/26/2022 19:48:13 10/26/20 22 10/26/2022 BASIC METAB OLIC PANEL sodium 138 mEq/L 134-14 4 Not Available [facility] [address], [address], 10/26/2022 19:48:13 10/26/20 22 10/26/2022 BASIC METAB OLIC PANEL potassium 4.4 mEq/L 3.6-5. 6 Not Available [facility] [address], [address], 10/26/2022 19:48:13 10/26/20 22 10/26/2022 BASIC METAB OLIC PANEL chloride, serum 103 mEq/L 96-109 Not Available [facility] [address], [address], 10/26/2022 19:48:13 10/26/20 22 10/26/2022 BASIC METAB OLIC PANEL carbon dioxide 22 mEq/L 20-32 Not Available [facility] [address], [address], 10/26/2022 19:48:13 10/26/20 22 10/26/2022 BASIC METAB OLIC PANEL anion gap 13.0 8-15 Not Available [facility] [address], [address], 10/26/2022 19:48:13 10/26/20 22 10/26/2022 BASIC METAB OLIC PANEL calcium 8.6 mg/dL 8.3-10 .0 Not Available [facility] [address], [address], 10/26/2022 19:48:13 10/26/20 22 10/26/2022 BASIC METAB OLIC PANEL note Order ing physi brian: Shaunna Cyr Other provi ders: Zrocio Webber , Jesus Webber , Jesus Webber , Non Physi brian, , , Not Available [facility] [address], [address], 10/26/2022 19:48:13 12/13/19 23 12/18/2022 IGP, APTIM A HPV diagnosis: Commen t NEGAT IAN FOR INTRA EPITH ELIAL CHRIS Guerra OR TENZIN JORDAN . Not Available [facility] ([facility]) [address] [facility], [place], [address], 12/18/2022 18:06:35 12/13/19 23 12/18/2022 IGP, APTIM A HPV specimen adequacy: Commen t Satis facto ry for evalu ation . Endoc ervic al and/o r squam ous metap lasti c cells (endo cervi eric compo nent) are prese nt. Not Available [facility] ([facility]) [address] [facility], [place], [address], 12/18/2022 18:06:35 12/13/19 23 12/18/2022 IGP, APTIM A HPV clinician provided ICD10: Commen t Z01.4 19 Not Available [facility] ([facility]) [address] [facility], [place], [address], 12/18/2022 18:06:35 12/13/19 23 12/18/2022 IGP, APTIM A HPV performed by: Varinder Cain (ASCP ) Not Available [facility] ([facility]) [address] [place], [address], 12/18/2022 18:06:35 12/13/1912/18/2022 IGP, APTIM A HPV . . Not Available [facility] ([facility]) [address] [place], [address], 12/18/2022 18:06:35 12/13/1912/18/2022 IGP, APTIM A HPV [...] ts do occur . Not Available [facility] ([facility]) [address] [place], [address], 12/18/2022 18:06:35 12/13/1912/18/2022 IGP, APTIM A HPV test methodology: Loida benitez This liqui d based ThinP rep(R ) pap test was scree kody with the use of an image guide jerson blanc. Not Available [facility] ([facility]) [address] [place], [address], 12/18/2022 18:06:35 12/13/1912/18/2022 IGP, APTIM A HPV HPV aptima Negati ve negati ve This nucle ic acid ampli ficat ion test detec ts fourt een high- risk HPV types (16,1 8,31, 33,35 ,39,4 5,51, 52,56 ,58,5 9,66, 68) witho ut diffe renti ation . Not Available [facility] ([facility]) [address] [facility], [place], [address], 12/18/2022 18:06:35 10/24/20 22 10/24/2022 US, salin e infus ed uteru s No observ ation record ed. [facility], [address], [place], [address], 12/26/2022 08:25:59 10/24/20 22 10/24/2022 US, salin e infus ed uteru s No observ ation record ed. [email or web address] [facility], [address], [place], [address], 12/26/2022 08:26:56 10/25/20 22 10/25/2022 elect eveline maza am [facility] [address] [place] [address] ANNAMARIE T: PHOENIX ELLIS REG REF/ : WE 4034 HEART RATE 85 RR Interv al 706 Atrial Rate 85 P-R Interv al 175 P Durati on 126 P Horizo ntal [place] 4 P Front [place] 76 Q Onset 507 QRSD Interv al 85 QT Interv al 388 QTcB 462 QTcF 436 QRS Horizo ntal [place] 9 QRS [place] 57 I-40 Horizo ntal [place] 62 I-40 Front [place] 85 T-40 Horizo ntal [place] -1 T-40 Front [place] 46 T Horizo ntal [place] 41 T Wave [place] 53 S-T Horizo ntal [place] 92 S-T Front [place] 76 ECG Severi ty - NORMAL ECG - ECG Impres davy Sinus rhythm _ (Elect rodolfo chauhan Signed by) Trans D T: 1250 Signed D T: 1502 Report #: [id number] Orderi ng physic fabiana: Jesus Webber Other provid ers: Jesus Webber, Jesus Webber, , Non Physic fabiana, , , [facility] (Radiology) [address] [place] [address], [address], 10/28/2022 14:16:28 10/26/20 22 10/26/2022 CT, abdom en + pelvi s, w/o contr ast [facility] [address] [place] [address], [address] Name: PHOENIX ELLIS : [birth year] Date of Servic e: [birth year] Acct Number : [id number] Order Number : [id number] Locati on: [id number] Report Number : [id number] Servic e: ADM Darek/ME D Reques ting Physic fabiana: Ella Cyr PA-C Catego ry: COMPUT ED TOMOGR APHY [facility] Exam: CT ABD PELVIS W/O CONTRA ST Access ion #: [id number] VH Signs/ Sympto ms: Questi on [...] images are obtain ed. Adapt[employer] ve Iterat ian Dose Reduct ion (AIDR) and NEMA XR [...] in the pelvis , mostly collec ting wort extractor iorly. Vessel s: Aorta and IVC are [...] (if applic able): Approv ed By Attend [facility] Radiol ogist: Jerson Hoffman MD 12/02/ 22 1909 Orderi ng physic fabiana: Ella Cyr Other provid ers: Zung Webber, Jesus Webber, Jesus Webber, Non Physic fabiana, , , [email or web address] [facility] (Radiology) [address] [place], [address], 11/21/2022 09:33:07 10/27/20 22 10/25/2022 elect eveline colungagr am, routi ne ECG, 12 leads min No observ ation record ed. [facility] ([facility]) [address] [place], [address], 10/30/2022 00:57:27 12/27/19 23 10/29/2022 US, salin e infus ed uteru s No observ ation record ed. [email or web address] [facility], [address], [place], [address], 12/27/2022 14:59:39 12/27/19 23 10/29/2022 US, pelvi s No observ ation record ed. Not Available 2022 11:31:02 02/09/20 23 12/25/2022 CT, abdom en + pelvi s, w/ contr ast No observ ation record ed. [email or web address] [facility] (Radiology) [address] [place], [address], 02/21/2023 12:42:01 02/09/20 23 12/25/2022 CT, abdom en + pelvi s, w/o contr ast No observ ation record ed. [email or web address] [facility] (Radiology) [address] [place], [address], 02/21/2023 12:42:02 02/22/20 23 12/26/2022 XR, kidne y + urete r + bladd er No observ ation record ed. [email or web address] [facility] (Radiology) [address] [place], [address], 02/21/2023 12:42:02 Result Notes None recorded. Problems No Known Problems Procedures Surgical History Date Name Laterality Status Provider Name and Address Organization Details Recorded Time 04/05/20 23 hysterectomy completed Esequiel Knowles [facility] 05/15/2023 14:04:43 10/26/20 22 HYSTEROSCOPY, WITH ENDOMETRIAL ABLATION (SURG) completed Jesus Webber MD [address] [place] [address], [phone], [facility] 11/25/2022 11:13:32 10/24/20 22 Saline Infusion Sonogram (SIS) completed Jesus Webber MD [address] [place] [address], [phone], [facility] 10/25/2022 00:24:50 12/28/19 22 completed Marquita Badillo [facility] 10/23/2022 16:25:20 06/08/20 19 Colonoscopy completed Cici James [facility]. 08/21/2022 11:51:12 Imaging Results Imaging Date Name Status LastModified by Organization Details LastModified Time 10/24/2022 US, saline infused uterus completed [email or web address] [facility] [address], [address], 12/26/2022 08:25:59 10/24/2022 US, saline infused uterus [email or web address] [facility] [address], [address], 12/26/2022 08:26:56 10/25/2022 electrocardiogram completed [facility] (Radiology) [address] [place] [address], [address], 10/28/2022 14:16:28 10/26/2022 CT, abdomen + pelvis, w/o contrast completed [email or web address] [facility] (Radiology) [address] [place] [address], [address], 11/21/2022 09:33:07 10/25/2022 electrocardiogram, routine ECG, 12 leads min completed [facility] ([facility]) [address] [place], [address], 10/30/2022 00:57:27 10/29/2022 US, saline infused uterus completed [facility], [address], [place], [address], 12/27/2022 14:59:39 10/29/2022 US, pelvis completed [email or web address] Information no t available 02/08/2023 11:31:02 12/25/2022 CT, abdomen + pelvis, w/ contrast completed [email or web address] [facility] (Radiology) [address] [place] [address], [address], 02/21/2023 12:42:01 12/25/2022 CT, abdomen + pelvis, w/o contrast completed [email or web address] [facility] (Radiology) [address] [place] [address], [address], 02/21/2023 12:42:02 12/26/2022 XR, kidney + ureter + bladder completed [email or web address] [facility] (Radiology) [address] [place] [address], [address], 02/21/2023 12:42:02 Procedure Notes None recorded. Medical Equipment None Reported. Allergies Allergen ID Allergen Name Allergen Category Reaction Reaction Severity Criticality Documentation Date Start Date Code Code System Note Provider Name and Address Organization Details Recorded Time 511047 formaldeh yde environme nt,medica tion other mild low 08/21/2022 4530 RxNorm Cici benitez [place] - [facility] 11:[facility]:37 Medications Name Sig Start Date Stop [...] Updated DateTime 2 162.56 cm 25.4 kg/m2 68787.6 7 g 98.2 [degF] 87 /min 98 % 98 % 166 mm[Hg] 112 mm[Hg] 169 mm[Hg] 113 mm[Hg] [facility] 2 11:49:13 Date Recorded Body height Body temperature Heart rate Oxygen saturation Oxygen saturation in Arterial blood by Pulse oximetry Systolic blood pressure Diastolic blood pressure Provider Name and Address Organization Details Last Updated DateTime 2 162.56 cm 98.7 [degF] 77 /min 100 % 100 % 171 mm[Hg] 91 mm[Hg] Cici James [facility] 2 15:48:52 Date Recorded Body height Body temperature Heart rate Oxygen saturation Oxygen saturation in Arterial blood by Pulse oximetry Body mass index (BMI) Body weight Systolic blood pressure Diastolic blood pressure Provider Name and Address Organization Details Last Updated DateTime 2 162.56 cm 98.6 [degF] 92 /min 99 % 99 % 26.1 kg/m2 24481.3 2 g 185 mm[Hg] 108 mm[Hg] Cici James [facility] 2 15:42:53 Date Recorded Body height Body mass index (BMI) Body weight Pain severity - 0-10 verbal numeric rating [Score] - Reported Systolic blood pressure Diastolic blood pressure Provider Name and Address Organization Details Last Updated DateTime 3 162.56 cm 24.5 kg/m2 41895.7 1 g 5 145 mm[Hg] 89 mm[Hg] Marquita Badillo [facility] 3 16:04:44 Social History Question Answer Notes LastModified by Organizat ion Details LastModified Time Tobacco Smoking Status Never Smoker Marquita Badillo [facility]. 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 [id number] Information not available 08/28/2022 Do You Use [...] available 02/2022 13:35:56 Medical History Condition Response Fibroids Y Bleeding Problems Y Gynecological History Statement/Question Response History of [...] mL dose 04/05/2021 completed Marquita Stgermain null, [facility] 08/28/2022 13:36:22 COVID-19, mRNA, LNP-S, PF, 30 mcg/0.3 mL dose 03/15/2021 completed Marquita Stgermain null, [facility] 08/28/2022 13:36:22 Tdap 04/02/2019 completed Marquita Stgermain null, [facility] 08/28/2022 13:36:22 COVID-19, mRNA, LNP-S, PF, 30 mcg/0.3 mL dose 11/22/2021 completed Marquita Stgermain null, [facility] 08/28/2022 13:36:22 Past Encounters Encounter ID Performer Location Encounter Start Date Encounter Closed Date Diagnosis/Indication Diagnosis SNOMED-CT Code Diagnosis ICD10 Code Diagnosis Note [id number] MD [facility] [address] [place] [id number] 08/21/2022 11:24:45 08/21/2022 13:03:53 Body mass index 25-29 - overweight 749037991 Z68.25 Menorrhagia 983979082 N9 2.0 Uterine leiomyoma 285846 05 D25.9 Polyp of corpus uteri 11 924514 N84.0 [id number] MD [facility] [place] [address] [place] [id number] 10/24/2022 14:48:50 10/24/2022 16:51:18 Screening procedure 37637671 Z13.9 Uterine leiomyoma 787949 05 D25.9 Ultrasound today shows at least 3 uterine fibroids noted. The largest 1 measured 3.39 x 3 x 3.19 cm. 2 of them are seen at the fundal area. They are seen displacing the endometria l cavity however sonohyster ogram showed that they are not submucosal . Abnormal u terine bleeding [id number] 9100 N93.9 Patient reports menstrual bleeding continue to be heavier and longer despite taking OCP compliantl y. She is really hoping to have endometria l ablation done as soon as possible. We will have Brittaney to schedule for her. Polyp of corpus uteri 11 739577 N84.0 Outside biopsy report endometria l polyp. Sonohyster ogram shows an area at the fundal area that may suggesting endometria l polyp, however it is shadowed by the fibroid so unable to measure. [id number] MD ROB[facility] [address] [address] 10/29/2022 14:39:41 10/29/2022 16:19:26 Body mass index 25-29 - overweight 709356853 Z68.25 Postoperative visit 1836 46700 Z09 Submucous leiomyoma of uterus 95075410 D25.0 Menorrhagia 171245443 N9 2.0 [id number] MD jose [facility] - [address] [id number] 12/13/2022 15:03:24 12/14/2022 07:48:00 Gynecologic examination 08024573 Z01.419 Normal breast and pelvic exam, pap done today, Corin states that she is already scheduled for mammogram at [place] , advised to have report sent to me when she goes for test. Menorrhagia 135742296 N9 2.0 Uterine leiomyoma 298375 05 D25.9 s/p partial ablation and myomectomy [...] Scherer Member ID Guarantor Name 08/21/2022 1 [facility]) Corin Ellis [id number] Corin Ellis 10/24/2022 1 [facility] Corin [employer] [id number] 0 Corin Desaie 10/29/2022 1 [facility]) Corin Desaie [id number] 0 Corin Ellis 12/13/2022 1 [facility]) Corin Ellis [id number] 0 Corin Ellis Notes Date Note Type Note Provider Name and Address Organization Details Recorded Time 08/21/2022 text/html Corin is 52 yo , G0, new patient to me, presents today for the complaint of heavy and painful menstrual period. 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 She moved to [facility] for the last five years but still going to [place] to see her SEISMOLOGY TEACHER there. Since last year, her menstrual periods have become very heavy and crampy, lasting for 7 to 10 days and passing a lot of blood clots. Her SEISMOLOGY TEACHER did work up including bloodwork and pelvic [...] to transfer care out, feeling that her SEISMOLOGY TEACHER dismiss her concern.She reports last pap 09/12/21, normal, last MMG 12/28/21 also normal. LMP 08/14/22.Last colonoscopy 06/08/2019 Jesus Webber MD [address] [place], [address], [facility] 08/23/2022 21:27:14 10/24/2022 text/html Corin is 52 ye ars old, with uterine fibroid, history of endometrial polyp, present today for sonohysterogram. She complains that her menstrual bleeding continue to be worsened, heavier despite taking control pills compliantly. Jesus Webber MD [address] [place], [address], [facility] 10/25/2022 00:31:41 10/29/2022 text/html Corin present today for postop visit. She underwent a hysteroscopy, D&C, polypectomy, submucosal myomectomy and endometrial ablation at [facility] on October 26, 2022. She is at [...] some vaginal spotting. Jesus Webber MD [address] [place], [address], [facility]. 11/01/2022 00:03:06 12/13/2022 text/html Corin is 52 yo G P , presents for annual SEISMOLOGY TEACHER exam today. On 10/26/2022, she underwent hysteroscopy D&C myomectomy and endometrial ablation. The ablation stopped after 37 second and a track was discovered anterior to myomectomy site, raising concern for uterine perforation. She was referred to [facility] for CT scan of abdomen [...] patient Contraception: OCP Jesus Webber MD [address] [place], [address], [facility] [employer] [facility]. 12/15/2022 23:47:32 OBGyn Episode No OBEpisode recorded.
--- OUTSIDE RECORDS SUMMARY | 2025-03-30 16:37 | XMS_ITS | Referral Summary ---
Author Organization [facility] Address [address] [place] [address] Care Team Providers Care Personal Care Attendant Name Role Phone Mio Pascual Primary Care Provider [phone] Allergies Active Allergy Reactions Criticality Noted Date [...] Not on file Procedures * Due to [place] state law, this organization might not be sharing negative HIV tests. Procedure Name Priority Date/Time Associated Diagnosis Comments AUDIE BILATERAL SCREENING DIGITAL MAMMOGRAM WITH AGUSTIN Routine 01/09/2024 1:34 PM EST Encounter for screening mammogram for breast cancer from Last 3 Months or Most Recently Relevant to Health Maintenance Results * Due to [place] state law, this organization might not be [...] to Health Maintenance Insurance [employer] Care Teams Personal Care Attendant Relationship Specialty Start Date End Date Mio Pascual [address] [place] [id number] PCP - General Internal Medicine 11/08/23
--- OUTSIDE RECORDS SUMMARY | 2025-03-30 16:37 | XMS_ITS | Clinical Summary ---
Author Organization [employer] [facility] Address [address] [place] [address] Care Team Providers Care Entry Level Staff Accountant Name Role Phone Pcp, No Primary Care Provider [phone] Allergies Active Allergy Reactions Criticality Noted Date [...] Adults 18 yrs or above (or HM Modifier)([facility]) 1987 Hepatitis C Virus Infection in Adolescents and Adults: Screening (or Modifier) ([facility]) 1987 [facility] Screening Reminder: Nona hernandez for all adults ([facility]) 1987 Tobacco Smoking Cessation: i n Adults excluding Women: Behavioral and Pharmacotherapy Interventions ([facility]) 1987 Cervical Cancer Screenin 1-65 yrs of age (or Modifier) 1990 Cervical Cancer Screening: P ap every 3 yrs pts age 21-65 1990 Cervical Cancer: Pap Screeni ng with Modifier timing ([facility]) 1990 Cervical Cancer: hrHPV alone or with cotesting Pap for Pts 30-65yrs screening every 5yrs ([facility]) 1990 Colorectal Cancer Screening 45 -75 Yrs (or HM Modifier) 2014 Colorectal Cancer: FLEXIBLE SIGMOIDOSCOPY Screening every 5 yrs 2014 Colorectal Cancer: Fecal Immunochemical Test (FIT) Annually [facility] 2014 Colorectal Cancer: High-sens itivity gFOBT Screening Annually [facility] 2014 Colorectal Cancer: Stool Col oguard Screening every 3 yrs 2014 Colorectal Cancer:CT Colonog pawan Screening every 5 yrs 2014 Lipid Screening: Every 5 yrs for Women aged 45+ (or HM Modifier) ([facility]) 2015 Breast Cancer: Screening Nona hernandez age 50-74 yrs (or HM Modifier)([facility]) 2019 Pneumococcal Vaccination Scr eening: Patients 50+ yrs of age ([facility]) (1 of 1 - PCV) 2019 Zoster/Shingles Vaccine Seri es Screening: Adults aged 18+ yrs (or HM Modifiers)([facility]) (1 of 2) 2019 COVID-19 Vaccine Screening: Initial Series and Booster Status ([facility]) ( - 2023- season) 2024 11/22/2021, 04/05/2021, 03/15/2021 Flu Vaccination: Yearly for ages 18mos through 64 years (or Modifier)([facility]) 06/25/2025 DTaP/Tdap/Td Vaccines ([facility]) (2 - Td or Tdap) 04/02/2029 04/02/2019 [employer] Not [facility] file [facility] Care Teams Entry Level Staff Accountant Relationship Specialty Start Date End Date Pcp, No PCP - General Family Medicine 01/08/23
--- OUTSIDE RECORDS SUMMARY | 2025-03-30 16:37 | XMS_ITS | Clinical Summary ---
Author Organization [facility] Address [address] [place] [phone] Phone Care Team Providers Care Thread Checker Name Role Phone Mio Pascual Primary Care Provider [phone] Allergies Active Allergy Reactions Criticality Noted Date [...] EST) SODIUM 136 133 - 146 mmol/L [facility] POTASSIUM 3.7 3.3 - 5.1 mmol/L [facility] CHLORIDE 99 96 - 108 mmol/L [facility] CO2 26 21 - 35 mmol/L [facility] BUN 11 6 - 19 mg/dL [facility] CREATININE 0.70 0.5 - 1.5 mg/dL [facility] GLUCOSE 94 70 - 99 mg/dL [facility] ALBUMIN 4.1 3.9 - 4.8 g/dL [facility] TOTAL PROTEIN 7.1 6.5 - 8.0 g/dL [facility] CALCIUM 9.0 8.4 - 10.3 mg/dL [facility] ALKALINE PHOSPHATASE 48 39 - 117 U/L [facility] TOTAL BILIRUBIN 0.3 0.0 - 1.2 mg/dL [facility] AST 18 0 - 37 U/L [facility] ALT 10 0 - 40 U/L [facility] GLOBULIN 3.0 1 - 4.8 g/dL [facility] EGFR 101 >59 mL/min/1.7 3m2 [facility] Comment:If patient is black, multiply result by 1.159. Estimated glomerular filtration rate calculated using the CKD-EPI equation. ANION GAP 15 10 - 20 mmol/L [facility] Blood 12/16/2019 3:24 PM EST 12/16/2019 3:28 PM EST Mahamed Kramer DO LAB BLOOD ORDERABLES [facility] [address] [place] [address] from Last 3 Months or Most Recently Relevant to Health Maintenance Care Teams Thread Checker Relationship Specialty Start Date End Date Mio Pascual DO [email or web address] PCP - General Internal Medicine 12/16/19 Additional Source Comments The information contained in this document represents components of the legal health record. It is not the complete legal health record.Formerly [facility]
--- OUTSIDE RECORDS SUMMARY | 2025-03-30 16:37 | XMS_ITS | Clinical Summary ---
Author Organization [facility] Address [address] [place] [address] Care Team Providers Care Technical Spec Name Role Phone Mio Pascual Primary Care Provider [phone] Allergies Active Allergy Reactions Criticality Noted Date [...] 2044 Procedures * Due to [place] Enpirion law, this organization might not be sharing negative HIV tests. Procedure Name Priority Date/Time Associated Diagnosis Comments AUDIE BILATERAL SCREENING DIGITAL MAMMOGRAM WITH AGUSTIN Routine 01/09/2024 1:34 PM EST Encounter for screening mammogram for breast cancer from Last 3 Months or Most Recently Relevant to Health Maintenance Results * Due to [place] En[place]ion law, this organization might not be sharing [...] to Health Maintenance Insurance [employer] Care Teams Technical Spec Relationship Specialty Start Date End Date Mio Pascual [address] [place] [address] PCP - General Internal Medicine 11/08/23
== END 2025-03-30 15:25 | disposition home or self-care (01) ==
LOC: HO.XRAY 15:24
PROVIDERS: PCP Internal Medicine; Visit Provider Internal Medicine
DX: M25.551 Pain in right hip (principal)
CPT/HCPCS: 73502

== ENCOUNTER → 2025-03-30 15:31 | Outpatient (BNV) | payer OTHER, SELFPAY | PROVIDERS: PCP Internal Medicine; Visit Provider Radiology Diagnostic Radiology | DX: M25.551 Pain in right hip (principal) | CPT/HCPCS: 73502 ==